=== PATIENT | male | born 1980 | race American Indian/Alaskan Native ===

== ENCOUNTER 2016-07-12 14:47 | Emergency (ER) | payer OTHER, MEDICAID ==
[2016-07-12] MEDS ORDERED: Sodium Chloride 0.9% 10 ML Syringe FLUSH PRN (15:47)
[2016-07-12] MEDS ORDERED: Sodium Chloride 0.9% 1,000 ML IV ONE (16:16)
[2016-07-12] MEDS ORDERED: Iopamidol 612 MG/ML 50 ML SDV IVPUSH ONE (16:16)
[2016-07-12] MEDS ORDERED: Iopamidol 612 MG/ML 75 ML Bottle IVPUSH ONE (16:16)
[2016-07-12 16:22] LABS: CHLORIDE,CL 99 mmol/L (101-111); SODIUM,NA 137 mmol/L (135-145)
[2016-07-12] MEDS ORDERED: cefTRIAXone 2 GM in Sodium Chloride 0.9% 100 ML IV ONE (18:55)
--- NOTE | 2016-07-12 19:03 | EDM.PDOC ---
Scribed by Nayely Narvaez 07/12/16 468 for Willian Hunter MD ED HPI GI/ABDOMINAL - General Chief Complaint: Abdominal Pain Stated Complaint: PAIN LOWER RT SIDE Time Seen by Provider: 07/12/16 15:47 Source of Information: Reports: Patient, RN, RN notes reviewed History Limitations: Reports: No limitations - History of Present Illness INITIAL COMMENTS - FREE TEXT/NARRATIVE: Patient developed right lower quadrant abdominal pain last night around 8:30 p.m. Today it returned and worsened and then improved to mild. Worse with movement and causes nausea. Denies radiating pain, fever, chills, vomiting, diarrhea or constipation. Symptom Onset Date: 07/11/16 Timing/Duration: Reports: Gradual onset Location: RLQ Quality: Reports: ache Severity: moderate Associated Symptoms: Reports: denies other symptoms - Related Data Allergies/ADRs: Allergies Allergy/AdvReac Type Severity Reaction Status Date / Time No Known Allergies Allergy Verified 05/29/16 16:19 Home Meds: Home Meds Aspirin 81 mg PO DAILY 02/26/15 [History] Hydrochlorothiazide [Hydrochlorothiazide] 25 mg PO DAILY 02/26/15 [History] Lisinopril 10 mg PO DAILY 02/26/15 [History] Pantoprazole [Protonix] 40 mg PO DAILY 02/26/15 [History] amLODIPine Besylate [Amlodipine Besylate] 5 mg PO DAILY 02/26/15 [History] Celecoxib [CeleBREX] 100 mg PO ASDIRECTED PRN 07/12/16 [History] Past Medical History HEENT History: Reports: Impaired vision Other HEENT History: WEARS CORRECTIVE LENSES Cardiovascular History: Reports: Hypertension Other Cardiovascular History: HYPERLIPIDEMIA Gastrointestinal History: Reports: GERD Musculoskeletal History: Reports: None Endocrine/Metabolic History: Reports: Diabetes, type II, Obesity/BMI 30+ (morbid ) Dermatologic History: Reports: Other (see below) Other Dermatologic History: currently being treated for abscess to lower right abd. - Infectious Disease History Infectious Disease History: Reports: Chicken pox - Past Surgical History HEENT Surgical History: Reports: None GI Surgical History: Reports: None Other Musculoskeletal Surgeries/Procedures:: HIP SURGERY D/T DISLOCATION Dermatological Surgical History: Reports: None Social & Family History - Family History Family Medical History: Noncontributory HEENT: Reports: Macular degeneration Other HEENT Family History: Dad Cardiac: Reports: Heart failure Other Cardiac Family History: Dad Respiratory: Reports: COPD Psychiatric: Reports: PTSD Other Psychiatric Family History: Dad Endocrine/Metabolic: Reports: Diabetes, type II Other Endocrine/Metabolic Family History: mom Hematologic: Reports: None - Tobacco Use Smoking Status *Q: Never Smoker Years of Tobacco use: 18 Packs/Tins Daily: 0.1 Used Tobacco, but Quit: No Second Hand Smoke Exposure: No - Caffeine Use Caffeine Use: Reports: None - Recreational Drug Use Recreational Drug Use: No ED ROS GENERAL - Review of Systems Review Of Systems: ROS reveals no pertinent complaints other than HPI. ED EXAM, GI/ABD - Physical Exam Exam: See Below Exam Limited By: No limitations General Appearance: obese Eyes: bilateral: pale conjunctiva Ears: normal external exam, normal canal, hearing grossly normal, normal TMs Nose: normal inspection Throat/Mouth: Other (mild pharyngeal erythema.) Head: atraumatic, normocephalic Neck: normal inspection, supple, non-tender, full range of motion Respiratory/Chest: no respiratory distress, lungs clear, normal breath sounds, no accessory muscle use, chest non-tender Cardiovascular: normal peripheral pulses, regular rate, rhythm, no edema, no gallop, no JVD, no murmur, no rub GI/Abdominal: other (morbidly obese abdomen with RLQ pain to palpation. No guarding or rigidity. Normal bowel sounds.) Back Exam: normal inspection, full range of motion, NT Extremities: normal inspection Neurological: alert, oriented, CN II-XII intact, normal cognition, normal gait, normal reflexes, no motor/sensory deficits Psychiatric: normal affect, normal mood Skin Exam: Warm, Dry, Intact, Normal color, No rash Course - Vital Signs Last Recorded V/S: Last Vital Signs Temp 36.4 C 07/12/16 15:33 Pulse 75 07/12/16 15:33 Resp 18 07/12/16 15:33 BP 117/78 07/12/16 15:33 Pulse Ox 96 07/12/16 15:33 - Orders/Labs/Meds Orders: Active Orders 24 hr Category Date Time Status Peripheral IV Care [RC] . DIRECTED Care 07/12/16 15:48 Active Sodium Chloride 0.9% [Saline Flush] Med 07/12/16 15:47 Active 10 ml FLUSH ASDIRECTED PRN cefTRIAXone [Rocephin] 2 gm Med 07/12/16 18:55 Active Sodium Chloride 0.9% [Normal Saline] 100 ml IV ONETIME Peripheral IV Insertion Adult [OM.PC] Stat Oth 07/12/16 15:47 Ordered Medication Orders Ceftriaxone Sodium 2 gm/ (Sodium Chloride) 100 mls @ 200 mls/hr IV ONETIME ONE Stop: 07/12/16 19:24 Sodium Chloride (Saline Flush) 10 ml FLUSH ASDIRECTED PRN PRN Reason: Keep Vein Open Last Admin: 07/12/16 16:37 Dose: 10 ml Labs: Laboratory Tests 07/12/16 07/12/16 07/12/16 Range/Units 15:49 15:49 15:55 WBC 10.9 H (5.0-10.0) 10^3/uL RBC 5.33 (4.6-6.2) 10^6/uL Hgb 15.1 (14.0-18.0) g/dL Hct 45.5 (40.0-54.0) % MCV 85.4 (80-100) fL MCH 28.3 (27.0-34.0) pg MCHC 33.2 (33.0-35.0) g/dL Plt Count 351 (150-450) 10^3/uL Neut % (Auto) 65.8 (42.2-75.2) % Lymph % (Auto) 24.4 (20.5-50.1) % [place] % (Auto) 7.6 (2-8) % Eos % (Auto) 1.6 (1.0-3.0) % Baso % (Auto) 0.6 (0.0-1.0) % Sodium (135-145) mmol/L Potassium (3.6-5.0) mmol/L Chloride (101-111) mmol/L Carbon Dioxide (21.0-31.0) mmol/L Anion Gap BUN (7-18) mg/dL Creatinine (0.6-1.3) mg/dL Est Cr Clr Drug Dosing Estimated GFR (MDRD) BUN/Creatinine Ratio Glucose (74-105) mg/dL Calcium (8.4-10.2) mg/dl Total Bilirubin (0.2-1.0) mg/dL AST (10-42) IU/L ALT (10-60) IU/L Alkaline Phosphatase (42-121) IU/L Total Protein (6.7-8.2) g/dl Albumin (3.2-5.5) g/dl Globulin Albumin/Globulin Ratio Amylase (28-100) U/L Lipase (22-51) U/L Urine Color Yellow (YELLOW) Urine Appearance Clear (CLEAR) Urine pH 6.5 (5.0-9.0) Ur Specific [place] 1.020 (1.005-1.030) Urine Protein Negative (NEGATIVE) Urine Glucose (UA) Negative (NEGATIVE) Urine Ketones Negative (NEGATIVE) Urine Occult Blood Negative (NEGATIVE) Urine Nitrite Negative (NEGATIVE) Urine Bilirubin Negative (NEGATIVE) Urine Urobilinogen 0.2 (0.2-1.0) mg/dL Ur Leukocyte Esterase Negative (NEGATIVE) Urine RBC 0-5 /HPF Urine WBC 0-5 (0-5/HPF) /HPF Ur Epithelial Cells Few /HPF Urine Bacteria Few (0-FEW/HPF) /HPF Urine Mucus Moderate H /LPF Urine Opiates Screen Negative (NEGATIVE) Ur Oxycodone Screen Negative (NEGATIVE) Urine Methadone Screen Negative (NEGATIVE) Ur Barbiturates Screen Negative (NEGATIVE) U Tricyclic Antidepress Negative (NEGATIVE) Ur Phencyclidine Scrn Negative (NEGATIVE) Ur Amphetamine Screen Negative (NEGATIVE) U Methamphetamines Scrn Negative (NEGATIVE) Urine MDMA Screen Negative (NEGATIVE) U Benzodiazepines Scrn Negative (NEGATIVE) Urine Cocaine Screen Negative (NEGATIVE) U Marijuana (THC) Screen Negative (NEGATIVE) 07/12/16 Range/Units 15:55 WBC (5.0-10.0) 10^3/uL RBC (4.6-6.2) 10^6/uL Hgb (14.0-18.0) g/dL Hct (40.0-54.0) % MCV (80-100) fL MCH (27.0-34.0) pg MCHC (33.0-35.0) g/dL Plt Count (150-450) 10^3/uL Neut % (Auto) (42.2-75.2) % Lymph % (Auto) (20.5-50.1) % [place] % (Auto) (2-8) % Eos % (Auto) (1.0-3.0) % Baso % (Auto) (0.0-1.0) % Sodium 137 (135-145) mmol/L Potassium 3.8 (3.6-5.0) mmol/L Chloride 99 L (101-111) mmol/L Carbon Dioxide 26.0 (21.0-31.0) mmol/L Anion Gap 15.8 BUN 10 (7-18) mg/dL Creatinine 0.6 (0.6-1.3) mg/dL Est Cr Clr Drug Dosing TNP Estimated GFR (MDRD) > 60 BUN/Creatinine Ratio 16.66 Glucose 98 (74-105) mg/dL Calcium 9.3 (8.4-10.2) mg/dl Total Bilirubin 0.8 (0.2-1.0) mg/dL AST 21 (10-42) IU/L ALT 22 (10-60) IU/L Alkaline Phosphatase 87 (42-121) IU/L Total Protein 8.1 (6.7-8.2) g/dl Albumin 4.3 (3.2-5.5) g/dl Globulin 3.8 Albumin/Globulin Ratio 1.13 Amylase 37 (28-100) U/L Lipase 22 (22-51) U/L Urine Color (YELLOW) Urine Appearance (CLEAR) Urine pH (5.0-9.0) Ur Specific [place] (1.005-1.030) Urine Protein (NEGATIVE) Urine Glucose (UA) (NEGATIVE) Urine Ketones (NEGATIVE) Urine Occult Blood (NEGATIVE) Urine Nitrite (NEGATIVE) Urine Bilirubin (NEGATIVE) Urine Urobilinogen (0.2-1.0) mg/dL Ur Leukocyte Esterase (NEGATIVE) Urine RBC /HPF Urine WBC (0-5/HPF) /HPF Ur Epithelial Cells /HPF Urine Bacteria (0-FEW/HPF) /HPF Urine Mucus /LPF Urine Opiates Screen (NEGATIVE) Ur Oxycodone Screen (NEGATIVE) Urine Methadone Screen (NEGATIVE) Ur Barbiturates Screen (NEGATIVE) U Tricyclic Antidepress (NEGATIVE) Ur Phencyclidine Scrn (NEGATIVE) Ur Amphetamine Screen (NEGATIVE) U Methamphetamines Scrn (NEGATIVE) Urine MDMA Screen (NEGATIVE) U Benzodiazepines Scrn (NEGATIVE) Urine Cocaine Screen (NEGATIVE) U Marijuana (THC) Screen (NEGATIVE) Rapid strep: Positive Meds: Medications Generic Name Dose Route Start Last Admin Trade Name Freq PRN Reason Stop Dose Admin Ceftriaxone Sodium 2 gm/ 100 mls @ 200 mls/hr 07/12/16 18:55 Sodium Chloride IV 07/12/16 19:24 ONETIME ONE Sodium Chloride 10 ml 07/12/16 15:47 07/12/16 16:37 Saline Flush FLUSH 10 ml ASDIRECTED PRN Administration Keep Vein Open Discontinued Medications Generic Name Dose Route Start Last Admin Trade Name Freq PRN Reason Stop Dose Admin Sodium Chloride 1,000 mls @ 999 mls/hr 07/12/16 16:16 07/12/16 17:57 Normal Saline IV 07/12/16 17:16 999 mls/hr .BOLUS ONE Administration Iopamidol 75 ml 07/12/16 16:16 07/12/16 16:55 Isovue-300 (61%) IVPUSH 07/12/16 16:17 75 ml ONETIME ONE Administration Iopamidol 50 ml 07/12/16 16:16 07/12/16 16:55 Isovue-300 (61%) IVPUSH 07/12/16 16:17 50 ml ONETIME ONE Administration - Radiology Interpretation Free Text/Narrative:: Chest x-ray: Normal chest per rad report. CT abdomen and pelvis: Normal appendix per rad report. Departure - Departure Time of Disposition: 18:59 Disposition: Home, Self-Care 01 Condition: fair Clinical Impression: Strep pharyngitis, Abdominal pain, RLQ Instructions: Strep Throat, [id number], Abdominal Pain, Adult Forms: ED Department Discharge Additional Instructions: Amoxicillin 500mg. Follow up in clinic if not improving in 2 days. - My Orders Last 24 Hours: My Active Orders 07/12/16 15:47 Sodium Chloride 0.9% [Saline Flush] 10 ml FLUSH ASDIRECTED PRN Peripheral IV Insertion Adult [OM.PC] Stat 07/12/16 15:48 Peripheral IV Care [RC] . DIRECTED 07/12/16 18:55 cefTRIAXone [Rocephin] 2 gm Sodium Chloride 0.9% [Normal Saline] 100 ml IV ONETIME - Assessment/Plan Last 24 Hours: My Active Orders 07/12/16 15:47 Sodium Chloride 0.9% [Saline Flush] 10 ml FLUSH ASDIRECTED PRN Peripheral IV Insertion Adult [OM.PC] Stat 07/12/16 15:48 Peripheral IV Care [RC] . DIRECTED 07/12/16 18:55 cefTRIAXone [Rocephin] 2 gm Sodium Chloride 0.9% [Normal Saline] 100 ml IV ONETIME I have read and agree with the documentation that has been completed regarding this visit. By signing this record, I attest that the documentation was completed in my physical presence and is an accurate record of the encounter.
[2016-07-12 19:13] VITALS: BP 127/77
== END 2016-07-12 19:50 | disposition home or self-care (01) ==
LOC: DL.ED 14:47
DX: R10.31 Right lower quadrant pain (principal); J02.0 Streptococcal pharyngitis; Z79.82 Long term (current) use of aspirin; Z79.899 Other long term (current) drug therapy; I10 Essential (primary) hypertension; E78.5 Hyperlipidemia, unspecified; K21.9 Gastro-esophageal reflux disease without esophagitis; E11.9 Type 2 diabetes mellitus without complications; E66.9 Obesity, unspecified; Z68.30 Body mass index [BMI] 30.0-30.9, adult
CPT/HCPCS: 36415; 71020; 74177; 80053; 80305; 81001; 82150; 83690; 85025; 87430; 96361; 96365; 99284; J0696; J7030; J7050; Q9967

== ENCOUNTER 2016-07-29 15:52 | Emergency (ER) | payer OTHER, MEDICAID ==
[2016-07-29 16:05] VITALS: BP 134/90
--- NOTE | 2016-07-29 16:41 | EDM.PDOC ---
ED HPI GENERAL MEDICAL PROBLEM - General Chief Complaint: General Stated Complaint: [id number] DIZZY LIGHT HEADED Time Seen by Provider: 07/29/16 16:39 Source of Information: Reports: Patient History Limitations: Reports: No limitations - History of Present Illness INITIAL COMMENTS - FREE TEXT/NARRATIVE: Pt states that he woke this afternooon and became lightheaded and had some dizziness with nausea. Denies vomiting or LOC. no other complaints. Onset Date: 07/29/16 Duration: Recurring Associated Symptoms: Reports: nausea/vomiting - Related Data Allergies Allergy/AdvReac Type Severity Reaction Status Date / Time No Known Allergies Allergy Verified 07/29/16 16:03 Home Meds: Home Meds Aspirin 81 mg PO DAILY 02/26/15 [History] Hydrochlorothiazide [Hydrochlorothiazide] 25 mg PO DAILY 02/26/15 [History] Lisinopril 10 mg PO DAILY 02/26/15 [History] Pantoprazole [Protonix] 40 mg PO DAILY 02/26/15 [History] amLODIPine Besylate [Amlodipine Besylate] 5 mg PO DAILY 02/26/15 [History] Celecoxib [CeleBREX] 100 mg PO ASDIRECTED PRN 07/12/16 [History] Past Medical History HEENT History: Reports: Impaired vision Other HEENT History: WEARS CORRECTIVE LENSES Cardiovascular History: Reports: Hypertension Other Cardiovascular History: HYPERLIPIDEMIA Gastrointestinal History: Reports: GERD Musculoskeletal History: Reports: None Endocrine/Metabolic History: Reports: Diabetes, type II, Obesity/BMI 30+ Other Endocrine/Metabolic History: diet control. Dermatologic History: Reports: Other (see below) Other Dermatologic History: currently being treated for abscess to lower right abd. - Infectious Disease History Infectious Disease History: Reports: Chicken pox - Past Surgical History HEENT Surgical History: Reports: None GI Surgical History: Reports: None Other Musculoskeletal Surgeries/Procedures:: HIP SURGERY D/T DISLOCATION Dermatological Surgical History: Reports: None Social & Family History - Family History Family Medical History: Noncontributory HEENT: Reports: Macular degeneration Other HEENT Family History: Dad Cardiac: Reports: Heart failure Other Cardiac Family History: Dad Respiratory: Reports: COPD Psychiatric: Reports: PTSD Other Psychiatric Family History: Dad Endocrine/Metabolic: Reports: Diabetes, type II Other Endocrine/Metabolic Family History: mom Hematologic: Reports: None - Tobacco Use Smoking Status *Q: Unknown Ever Smoked Years of Tobacco use: 18 Packs/Tins Daily: 0.1 Used Tobacco, but Quit: No Second Hand Smoke Exposure: No - Caffeine Use Caffeine Use: Reports: Soda - Recreational Drug Use Recreational Drug Use: No ED ROS GENERAL - Review of Systems Review Of Systems: See Below Neurological: Reports: Dizziness ED EXAM, GENERAL - Physical Exam Exam: See Below Exam Limited By: No limitations General Appearance: alert, WD/WN, no apparent distress Eye Exam: bilateral eye: normal inspection, PERRL Ears: normal external exam, normal canal, hearing grossly normal Ear Exam: left ear: TM normal, right ear: TM dull (mild effusion) Nose: normal inspection, normal mucosa, no blood Throat/Mouth: Normal inspection, Normal lips, Normal teeth, Normal gums, Normal oropharynx, Normal voice, No airway compromise Head: atraumatic, normocephalic Respiratory/Chest: no respiratory distress, lungs clear, normal breath sounds, no accessory muscle use, chest non-tender Cardiovascular: normal peripheral pulses, regular rate, rhythm, no edema, no gallop, no JVD, no murmur, no rub Neurological: alert, oriented, CN II-XII intact, normal cognition, normal gait, normal reflexes, no motor/sensory deficits Course - Vital Signs Last Recorded V/S: Last Vital Signs Temp 97.8 F 07/29/16 16:04 Pulse 70 07/29/16 16:04 Resp 16 07/29/16 16:04 BP 134/90 07/29/16 16:04 Pulse Ox 96 07/29/16 16:04 Orthostatic Blood Pressure [ 124/81 Standing] Orthostatic Blood Pressure [ 123/76 Sitting] Orthostatic Blood Pressure [ 125/70 Supine] - Orders/Labs/Meds Orders: Active Orders 24 hr Category Date Time Status EKG Documentation Completion [RC] STAT Care 07/29/16 16:41 Active Orthostatic Vital Signs [RC] ASDIRECTED Care 07/29/16 16:43 Active Head wo Cont [CT] Stat Exams 07/29/16 16:41 Taken Meclizine [Antivert] Med 07/29/16 18:48 Once 12.5 mg PO ONETIME ONE Labs: Laboratory Tests 07/29/16 07/29/16 07/29/16 Range/Units 16:24 16:50 16:50 WBC 7.0 (5.0-10.0) 10^3/uL RBC 5.10 (4.6-6.2) 10^6/uL Hgb 14.3 (14.0-18.0) g/dL Hct 43.5 (40.0-54.0) % MCV 85.3 (80-100) fL MCH 28.0 (27.0-34.0) pg MCHC 32.9 L (33.0-35.0) g/dL Plt Count 356 (150-450) 10^3/uL Neut % (Auto) 57.1 (42.2-75.2) % Lymph % (Auto) 32.1 (20.5-50.1) % [place] % (Auto) 8.6 H (2-8) % Eos % (Auto) 1.2 (1.0-3.0) % Baso % (Auto) 1.0 (0.0-1.0) % Sodium 137 (135-145) mmol/L Potassium 4.1 (3.6-5.0) mmol/L Chloride 100 L (101-111) mmol/L Carbon Dioxide 27.0 (21.0-31.0) mmol/L Anion Gap 14.1 BUN 8 (7-18) mg/dL Creatinine 0.8 (0.6-1.3) mg/dL Est Cr Clr Drug Dosing 151.10 mL/min Estimated GFR (MDRD) > 60 Glucose 106 H (74-105) mg/dL POC Glucose 114 H (70-105) mg/dl Calcium 9.3 (8.4-10.2) mg/dl Creatine Kinase (26-174) IU/L Creatine Kinase Index (0-2.4) % CK-MB (CK-2) (0.4-4.7) ng/mL Troponin I < 0.02 (0.00-0.02) ng/ml Urine Color (YELLOW) Urine Appearance (CLEAR) Urine pH (5.0-9.0) Ur Specific [place] (1.005-1.030) Urine Protein (NEGATIVE) Urine Glucose (UA) (NEGATIVE) Urine Ketones (NEGATIVE) Urine Occult Blood (NEGATIVE) Urine Nitrite (NEGATIVE) Urine Bilirubin (NEGATIVE) Urine Urobilinogen (0.2-1.0) mg/dL Ur Leukocyte Esterase (NEGATIVE) Urine RBC /HPF Urine WBC (0-5/HPF) /HPF Ur Epithelial Cells /HPF Urine Bacteria (0-FEW/HPF) /HPF Urine Opiates Screen (NEGATIVE) Ur Oxycodone Screen (NEGATIVE) Urine Methadone Screen (NEGATIVE) Ur Barbiturates Screen (NEGATIVE) U Tricyclic Antidepress (NEGATIVE) Ur Phencyclidine Scrn (NEGATIVE) Ur Amphetamine Screen (NEGATIVE) U Methamphetamines Scrn (NEGATIVE) Urine MDMA Screen (NEGATIVE) U Benzodiazepines Scrn (NEGATIVE) Urine Cocaine Screen (NEGATIVE) U Marijuana (THC) Screen (NEGATIVE) 07/29/16 07/29/16 07/29/16 Range/Units 16:50 17:15 17:15 WBC (5.0-10.0) 10^3/uL RBC (4.6-6.2) 10^6/uL Hgb (14.0-18.0) g/dL Hct (40.0-54.0) % MCV (80-100) fL MCH (27.0-34.0) pg MCHC (33.0-35.0) g/dL Plt Count (150-450) 10^3/uL Neut % (Auto) (42.2-75.2) % Lymph % (Auto) (20.5-50.1) % [place] % (Auto) (2-8) % Eos % (Auto) (1.0-3.0) % Baso % (Auto) (0.0-1.0) % Sodium (135-145) mmol/L Potassium (3.6-5.0) mmol/L Chloride (101-111) mmol/L Carbon Dioxide (21.0-31.0) mmol/L Anion Gap BUN (7-18) mg/dL Creatinine (0.6-1.3) mg/dL Est Cr Clr Drug Dosing mL/min Estimated GFR (MDRD) Glucose (74-105) mg/dL POC Glucose (70-105) mg/dl Calcium (8.4-10.2) mg/dl Creatine Kinase 69 (26-174) IU/L Creatine Kinase Index 0.9 (0-2.4) % CK-MB (CK-2) 0.60 (0.4-4.7) ng/mL Troponin I (0.00-0.02) ng/ml Urine Color Yellow (YELLOW) Urine Appearance Clear (CLEAR) Urine pH 7.0 (5.0-9.0) Ur Specific [place] 1.015 (1.005-1.030) Urine Protein Negative (NEGATIVE) Urine Glucose (UA) Negative (NEGATIVE) Urine Ketones Negative (NEGATIVE) Urine Occult Blood Negative (NEGATIVE) Urine Nitrite Negative (NEGATIVE) Urine Bilirubin Negative (NEGATIVE) Urine Urobilinogen 0.2 (0.2-1.0) mg/dL Ur Leukocyte Esterase Negative (NEGATIVE) Urine RBC 0-5 /HPF Urine WBC 0-5 (0-5/HPF) /HPF Ur Epithelial Cells Few /HPF Urine Bacteria Few (0-FEW/HPF) /HPF Urine Opiates Screen Negative (NEGATIVE) Ur Oxycodone Screen Negative (NEGATIVE) Urine Methadone Screen Negative (NEGATIVE) Ur Barbiturates Screen Negative (NEGATIVE) U Tricyclic Antidepress Negative (NEGATIVE) Ur Phencyclidine Scrn Negative (NEGATIVE) Ur Amphetamine Screen Negative (NEGATIVE) U Methamphetamines Scrn Negative (NEGATIVE) Urine MDMA Screen Negative (NEGATIVE) U Benzodiazepines Scrn Negative (NEGATIVE) Urine Cocaine Screen Negative (NEGATIVE) U Marijuana (THC) Screen Negative (NEGATIVE) Departure - Departure Time of Disposition: 18:48 Disposition: Home, Self-Care 01 Condition: good Clinical Impression: Vertigo Instructions: Vertigo Forms: ED Department Discharge Additional Instructions: take the meclizine twice a day as needed for the dizziness. Make sure to get claritin or mucinex for allergy relief and to decrease the congestion. follow up in clinic in 2-4 days if not better. Return for any worsening symptoms. - My Orders Last 24 Hours: My Active Orders 07/29/16 16:41 EKG Documentation Completion [RC] STAT Head wo Cont [CT] Stat 07/29/16 16:43 Orthostatic Vital Signs [RC] ASDIRECTED 07/29/16 18:48 Meclizine [Antivert] 12.5 mg PO ONETIME ONE - Assessment/Plan Last 24 Hours: My Active Orders 07/29/16 16:41 EKG Documentation Completion [RC] STAT Head wo Cont [CT] Stat 07/29/16 16:43 Orthostatic Vital Signs [RC] ASDIRECTED 07/29/16 18:48 Meclizine [Antivert] 12.5 mg PO ONETIME ONE
[2016-07-29 17:15] LABS: CHLORIDE,CL 100 mmol/L (101-111); SODIUM,NA 137 mmol/L (135-145)
[2016-07-29] MEDS ORDERED: Meclizine 12.5 MG Tab PO ONE (18:48)
--- NOTE | 2016-09-30 10:52 | EKG ---
07/29/2016 - CESIA RASMUSSEN - TIME: 1653 p.m. EKG shows normal sinus rhythm. First-degree AV block. [facility] /[id number]
== END 2016-07-29 18:55 | disposition home or self-care (01) ==
LOC: DL.ED 15:52
DX: R42 Dizziness and giddiness (principal); R11.0 Nausea; I10 Essential (primary) hypertension; E78.5 Hyperlipidemia, unspecified; K21.9 Gastro-esophageal reflux disease without esophagitis; E11.9 Type 2 diabetes mellitus without complications; E66.9 Obesity, unspecified; Z79.82 Long term (current) use of aspirin; Z79.899 Other long term (current) drug therapy
CPT/HCPCS: 36415; 70450; 80048; 80305; 81001; 82550; 82553; 82962; 84484; 85025; 93005; 99284; A9270

== ENCOUNTER 2016-10-27 22:08 | Emergency (ER) | payer OTHER, MEDICAID ==
[2016-10-27 22:19] VITALS: BP 145/70
--- NOTE | 2016-10-27 22:36 | EDM.PDOC ---
ED HPI GENERAL MEDICAL PROBLEM - General Chief Complaint: ENT Problem Stated Complaint: SORE THROAT Time Seen by Provider: 10/27/16 22:25 Source of Information: Reports: Patient History Limitations: Reports: Language Barrier - History of Present Illness INITIAL COMMENTS - FREE TEXT/NARRATIVE: Congestion for 2 days, sore throat starting today. No fever. Hx strep. Has not tried any OTC cold products. Onset: Today Throat Pain Score (Numeric/FACES): 3 - Related Data Allergies Allergy/AdvReac Type Severity Reaction Status Date / Time No Known Allergies Allergy Verified 10/27/16 22:19 Home Meds: Home Meds Aspirin 81 mg PO DAILY 02/26/15 [History] Hydrochlorothiazide [Hydrochlorothiazide] 25 mg PO DAILY 02/26/15 [History] Lisinopril 10 mg PO DAILY 02/26/15 [History] Pantoprazole [Protonix] 40 mg PO DAILY 02/26/15 [History] amLODIPine Besylate [Amlodipine Besylate] 5 mg PO DAILY 02/26/15 [History] Celecoxib [CeleBREX] 100 mg PO ASDIRECTED PRN 07/12/16 [History] Past Medical History HEENT History: Reports: Impaired Vision Other HEENT History: WEARS CORRECTIVE LENSES Cardiovascular History: Reports: Hypertension Other Cardiovascular History: HYPERLIPIDEMIA Gastrointestinal History: Reports: GERD Musculoskeletal History: Reports: None Endocrine/Metabolic History: Reports: Diabetes, Type II, Obesity/BMI 30+ Other Endocrine/Metabolic History: diet control. Dermatologic History: Reports: Other (See Below) Other Dermatologic History: currently being treated for abscess to lower right abd. - Infectious Disease History Infectious Disease History: Reports: Chicken Pox - Past Surgical History GI Surgical History: Reports: None Musculoskeletal Surgical History: Reports: Other (See Below) Social & Family History - Family History Family Medical History: Noncontributory HEENT: Reports: Macular Degeneration Other HEENT Family History: Dad Cardiac: Reports: Heart Failure Other Cardiac Family History: Dad Respiratory: Reports: COPD Psychiatric: Reports: PTSD Other Psychiatric Family History: Dad Endocrine/Metabolic: Reports: Diabetes, type II Other Endocrine/Metabolic Family History: mom Hematologic: Reports: None - Tobacco Use Smoking Status *Q: Former Smoker Years of Tobacco use: 18 Packs/Tins Daily: 0.1 Used Tobacco, but Quit: No Second Hand Smoke Exposure: No - Caffeine Use Caffeine Use: Reports: Soda - Recreational Drug Use Recreational Drug Use: No ED ROS ENT - Review of Systems Review Of Systems: See Below Constitutional: Denies: Fever, Chills HEENT: Reports: Sinus Problem (conestion post nasal drainage) Respiratory: Reports: No Symptoms Cardiovascular: Reports: No Symptoms GI/Abdominal: Reports: No Symptoms Musculoskeletal: Reports: No Symptoms Skin: Reports: No Symptoms Neurological: Reports: No Symptoms ED EXAM, ENT - Physical Exam Exam: See Below Exam Limited By: No Limitations General Appearance: Alert, Mild Distress Eye Exam: Bilateral Eye: EOMI Ears: Normal External Exam, Normal TMs. No: TM Erythema, TM Fluid Nose: Normal Inspection Mouth/Throat: Pharyngeal Erythema Head: Atraumatic, Normocephalic Neck: Normal Inspection. No: Lymphadenopathy (L), Lymphadenopathy (R) Respiratory/Chest: No Respiratory Distress, Lungs Clear, Normal Breath Sounds Cardiovascular: Normal Peripheral Pulses, Regular Rate, Rhythm Extremities: Normal Range of Motion Neurological: Alert, Oriented, Normal Cognition Psychiatric: Normal Affect Skin: Warm, Dry, Intact Course - Vital Signs Last Recorded V/S: Last Vital Signs Temp 97.8 F 10/27/16 22:11 Pulse 87 10/27/16 22:11 Resp 18 10/27/16 22:11 BP 145/70 H 10/27/16 22:11 Pulse Ox 98 10/27/16 22:11 - Orders/Labs/Meds Orders: Active Orders 24 hr Category Date Time Status CULTURE STREP A CONFIRMATION [RM] Stat Lab 10/27/16 22:21 Results STREP SCRN A RAPID W CULT CONF [RM] Stat Lab 10/27/16 22:21 Received Departure - Departure Time of Disposition: 22:48 Disposition: Home, Self-Care 01 Condition: Good Clinical Impression: URI (upper respiratory infection) Qualifiers: URI type: unspecified viral URI Qualified Code(s): J06.9 - Acute upper respiratory infection, unspecified - Discharge Information Instructions: Upper Respiratory Infection, Adult, [id number] Forms: ED Department Discharge Additional Instructions: alternate tylenol and ibuprofen for discomfort OTC cold medications increase fluids rest follow up if symptoms worsen, fever chills, productive cough - My Orders Last 24 Hours: My Active Orders 10/27/16 22:21 CULTURE STREP A CONFIRMATION [RM] Stat STREP SCRN A RAPID W CULT CONF [RM] Stat - Assessment/Plan Last 24 Hours: My Active Orders 10/27/16 22:21 CULTURE STREP A CONFIRMATION [RM] Stat STREP SCRN A RAPID W CULT CONF [RM] Stat
== END 2016-10-27 22:52 | disposition home or self-care (01) ==
LOC: DL.ED 22:08
DX: J06.9 Acute upper respiratory infection, unspecified (principal); H54.7 Unspecified visual loss; I10 Essential (primary) hypertension; E78.5 Hyperlipidemia, unspecified; K21.9 Gastro-esophageal reflux disease without esophagitis; E66.9 Obesity, unspecified; E11.9 Type 2 diabetes mellitus without complications; Z87.891 Personal history of nicotine dependence; Z79.82 Long term (current) use of aspirin; Z79.899 Other long term (current) drug therapy
CPT/HCPCS: 87081; 87430; 99283

== ENCOUNTER 2016-12-16 14:38 | Emergency (ER) | payer OTHER, MEDICAID ==
[2016-12-16] MEDS ORDERED: Aspirin 81 MG Tab.Chew PO ONE (14:50)
[2016-12-16] MEDS ORDERED: Aspirin 81 MG Tab.Chew ONE (14:54)
--- NOTE | 2016-12-16 14:54 | EDM.PDOC ---
ED HPI GENERAL MEDICAL PROBLEM - General Stated Complaint: [id number] CHEST PAIN Time Seen by Provider: 12/16/16 14:45 Source of Information: Reports: Patient History Limitations: Reports: No Limitations - History of Present Illness INITIAL COMMENTS - FREE TEXT/NARRATIVE: This 36 yo male patient reports to the ED with left sided chest pain. The patient reports his pain has been intermittent throughout today. The patient reports he has had similar symptoms in the past. The patient reports his symptoms increase with he moves his left arm. The patient reports he was seen by a piercing machine operator, but was told that everything was normal. The patient has not taken anything today to change his symptoms. Onset: Today Duration: Hour(s):, Intermittent Location: Reports: Chest (left sided chest pain) Quality: Reports: Ache, Sharp Severity: Severe Improves with: Reports: None Worsens with: Reports: Movement (of his left arm) Context: Reports: Other Associated Symptoms: Reports: Chest Pain - Related Data Allergies Allergy/AdvReac Type Severity Reaction Status Date / Time No Known Allergies Allergy Verified 10/27/16 22:19 Home Meds: Home Meds Aspirin 81 mg PO DAILY 02/26/15 [History] Hydrochlorothiazide [Hydrochlorothiazide] 25 mg PO DAILY 02/26/15 [History] Lisinopril 10 mg PO DAILY 02/26/15 [History] Pantoprazole [Protonix] 40 mg PO DAILY 02/26/15 [History] amLODIPine Besylate [Amlodipine Besylate] 5 mg PO DAILY 02/26/15 [History] Celecoxib [CeleBREX] 100 mg PO ASDIRECTED PRN 07/12/16 [History] Past Medical History HEENT History: Reports: Impaired Vision Other HEENT History: WEARS CORRECTIVE LENSES Cardiovascular History: Reports: Hypertension Other Cardiovascular History: HYPERLIPIDEMIA Gastrointestinal History: Reports: GERD Musculoskeletal History: Reports: None Endocrine/Metabolic History: Reports: Diabetes, Type II, Obesity/BMI 30+ Other Endocrine/Metabolic History: diet control. Dermatologic History: Reports: Other (See Below) Other Dermatologic History: currently being treated for abscess to lower right abd. - Infectious Disease History Infectious Disease History: Reports: Chicken Pox - Past Surgical History GI Surgical History: Reports: None Musculoskeletal Surgical History: Reports: Other (See Below) Social & Family History - Family History Family Medical History: Noncontributory HEENT: Reports: Macular Degeneration Other HEENT Family History: Dad Cardiac: Reports: Heart Failure Other Cardiac Family History: Dad Respiratory: Reports: COPD Psychiatric: Reports: PTSD Other Psychiatric Family History: Dad Endocrine/Metabolic: Reports: Diabetes, type II Other Endocrine/Metabolic Family History: mom Hematologic: Reports: None - Tobacco Use Smoking Status *Q: Former Smoker Years of Tobacco use: 18 Packs/Tins Daily: 0.1 Used Tobacco, but Quit: No Second Hand Smoke Exposure: No - Caffeine Use Caffeine Use: Reports: Soda - Recreational Drug Use Recreational Drug Use: No ED ROS GENERAL - Review of Systems Review Of Systems: ROS reveals no pertinent complaints other than HPI. ED EXAM, GENERAL - Physical Exam Exam: See Below Exam Limited By: No Limitations General Appearance: Alert, WD/WN, Moderate Distress, Obese Eye Exam: Bilateral Eye: EOMI, Normal Inspection, PERRL Ears: Normal External Exam, Normal Canal, Hearing Grossly Normal, Normal TMs Nose: Normal Inspection, Normal Mucosa, No Blood Throat/Mouth: Normal Inspection, Normal Lips, Normal Teeth, Normal Gums, Normal Oropharynx, Normal Voice, No Airway Compromise Head: Atraumatic, Normocephalic Neck: Normal Inspection, Supple, Non-Tender, Full Range of Motion Respiratory/Chest: No Respiratory Distress, Lungs Clear, Normal Breath Sounds, No Accessory Muscle Use, Chest Non-Tender Cardiovascular: Normal Peripheral Pulses, Regular Rate, Rhythm, No Edema, No Gallop, No JVD, No Murmur, No Rub GI/Abdominal: Normal Bowel Sounds, Soft, Non-Tender, No Organomegaly, No Distention, No Abnormal Bruit, No Mass (Male) Exam: Deferred Rectal (Males) Exam: Deferred Back Exam: Normal Inspection, Full Range of Motion, NT Extremities: Normal Inspection, Normal Range of Motion, Non-Tender, Normal Capillary Refill, No Pedal Edema Neurological: Alert, Oriented, CN II-XII Intact, Normal Cognition, Normal Gait, Normal Reflexes, No Motor/Sensory Deficits Psychiatric: Normal Affect, Normal Mood Skin Exam: Warm, Dry, Intact, Normal Color, No Rash Lymphatic: No Adenopathy Course - Orders/Labs/Meds Orders: Active Orders 24 hr Category Date Time Status EKG Documentation Completion [RC] URGENT Care 12/16/16 14:44 Active Labs: Laboratory Tests 08/16/17 08/16/17 Range/Units 14:54 14:54 WBC 8.8 (5.0-10.0) 10^3/uL RBC 5.11 (4.6-6.2) 10^6/uL Hgb 14.4 (14.0-18.0) g/dL Hct 43.9 (40.0-54.0) % MCV 85.9 (80-100) fL MCH 28.2 (27.0-34.0) pg MCHC 32.8 L (33.0-35.0) g/dL Plt Count 343 (150-450) 10^3/uL Neut % (Auto) 49.5 (42.2-75.2) % Lymph % (Auto) 38.2 (20.5-50.1) % [place] % (Auto) 9.2 H (2-8) % Eos % (Auto) 2.2 (1.0-3.0) % Baso % (Auto) 0.9 (0.0-1.0) % Sodium 139 (135-145) mmol/L Potassium 4.0 (3.6-5.0) mmol/L Chloride 103 (101-111) mmol/L Carbon Dioxide 27.0 (21.0-31.0) mmol/L Anion Gap 13.0 BUN 9 (7-18) mg/dL Creatinine 0.6 (0.6-1.3) mg/dL Est Cr Clr Drug Dosing TNP Estimated GFR (MDRD) > 60 BUN/Creatinine Ratio 15.00 Glucose 99 (74-105) mg/dL Calcium 9.1 (8.4-10.2) mg/dl Total Bilirubin 0.9 (0.2-1.0) mg/dL AST 30 (10-42) IU/L ALT 32 (10-60) IU/L Alkaline Phosphatase 87 (42-121) IU/L Troponin I < 0.02 (0.00-0.02) ng/ml Total Protein 7.3 (6.7-8.2) g/dl Albumin 4.0 (3.2-5.5) g/dl Globulin 3.3 Albumin/Globulin Ratio 1.21 Meds: Medications Discontinued Medications Generic Name Dose Route Start Last Admin Trade Name Freq PRN Reason Stop Dose Admin Aspirin 324 mg 12/16/16 14:50 12/16/16 14:58 Aspirin PO 12/16/16 14:51 324 mg ONETIME ONE Administration Aspirin Confirm 12/16/16 14:54 Aspirin Administered 12/16/16 14:55 Dose 243 mg .ROUTE .STK-MED ONE Departure - Departure Time of Disposition: 15:46 Disposition: Home, Self-Care 01 Condition: Fair Clinical Impression: Non-cardiac chest pain Instructions: Nonspecific Chest Pain, [id number] Forms: ED Department Discharge Care Plan Goals: The patient was advised of the examination, lab, and x-ray results during the visit. The patient was encouraged to continue to monitor his symptoms over the next 24 hours. The patient should visit her primary care facility for continued evaluation and further management. If the patient has any additional symptoms or concerns, the patient should follow-up with his primary care facility or return to the emergency department. - My Orders Last 24 Hours: My Active Orders 12/16/16 14:44 EKG Documentation Completion [RC] URGENT - Assessment/Plan Last 24 Hours: My Active Orders 12/16/16 14:44 EKG Documentation Completion [RC] URGENT
[2016-12-16 15:19] LABS: CHLORIDE,CL 103 mmol/L (101-111); SODIUM,NA 139 mmol/L (135-145)
--- NOTE | 2016-12-18 10:48 | EKG ---
12/16/2016- CESIA RASMUSSEN - EKG done on a 36-year-old male showing sinus rhythm with heart rate of 66 beats per minute. RVH. Normal intervals. No acute ST wave changes. [facility] /[id number] MTDD
== END 2016-12-16 16:24 | disposition home or self-care (01) ==
LOC: DL.ED 14:38
DX: R07.89 Other chest pain (principal); H54.7 Unspecified visual loss; I10 Essential (primary) hypertension; E78.5 Hyperlipidemia, unspecified; K21.9 Gastro-esophageal reflux disease without esophagitis; E11.9 Type 2 diabetes mellitus without complications; E66.9 Obesity, unspecified; Z87.891 Personal history of nicotine dependence; Z79.899 Other long term (current) drug therapy
CPT/HCPCS: 36415; 71010; 80053; 84484; 85025; 93005; 99284; A9270

== ENCOUNTER 2017-07-14 14:21 | Emergency (ER) | payer OTHER, MEDICAID ==
--- NOTE | 2017-07-14 14:56 | EDM.PDOC ---
ED HPI GENERAL MEDICAL PROBLEM - General Chief Complaint: Chest Pain Stated Complaint: [id number] CHEST PAIN Time Seen by Provider: 07/14/17 14:35 Source of Information: Reports: Patient, RN, RN Notes Reviewed History Limitations: Reports: No Limitations - History of Present Illness INITIAL COMMENTS - FREE TEXT/NARRATIVE: Patient presents to the ED with complaints of chest pain. Reports that his pain started around 10 this am when he was sitting on the edge of the bed. Reports pain is to the left of his chest. Describes the pain as "twitiching in my chest. " Pain comes and goes lasting a couple seconds when it occurs. Denies shortness of breath, nausea, vomiting, abd pain, blood in his stools, diaphoresis, or recent illness. Patient reports pain is worse with movement. Improves with rest. Has not taken anything for the pain. Onset: Today Onset Time: 10:00 Location: Reports: Chest Quality: Reports: Pressure Severity: Moderate Improves with: Reports: Rest Worsens with: Reports: Movement Associated Symptoms: Reports: Chest Pain - Related Data Allergies Allergy/AdvReac Type Severity Reaction Status Date / Time No Known Allergies Allergy Verified 10/27/16 22:19 Home Meds: Home Meds Aspirin 81 mg PO DAILY 02/26/15 [History] Hydrochlorothiazide [Hydrochlorothiazide] 25 mg PO DAILY 02/26/15 [History] Lisinopril 10 mg PO DAILY 02/26/15 [History] Pantoprazole [Protonix] 40 mg PO DAILY 02/26/15 [History] amLODIPine Besylate [Amlodipine Besylate] 5 mg PO DAILY 02/26/15 [History] Celecoxib [CeleBREX] 100 mg PO ASDIRECTED PRN 07/12/16 [History] Past Medical History HEENT History: Reports: Impaired Vision Other HEENT History: WEARS CORRECTIVE LENSES Cardiovascular History: Reports: Hypertension Other Cardiovascular History: HYPERLIPIDEMIA Gastrointestinal History: Reports: GERD Musculoskeletal History: Reports: None Endocrine/Metabolic History: Reports: Diabetes, Type II, Obesity/BMI 30+ Other Endocrine/Metabolic History: diet control. Dermatologic History: Reports: Other (See Below) Other Dermatologic History: currently being treated for abscess to lower right abd. - Infectious Disease History Infectious Disease History: Reports: Chicken Pox - Past Surgical History GI Surgical History: Reports: None Musculoskeletal Surgical History: Reports: Other (See Below) Social & Family History - Family History Family Medical History: Noncontributory HEENT: Reports: Macular Degeneration Other HEENT Family History: Dad Cardiac: Reports: Heart Failure Other Cardiac Family History: Dad Respiratory: Reports: COPD Psychiatric: Reports: PTSD Other Psychiatric Family History: Dad Endocrine/Metabolic: Reports: Diabetes, type II Other Endocrine/Metabolic Family History: mom Hematologic: Reports: None - Tobacco Use Smoking Status *Q: Former Smoker Years of Tobacco use: 18 Packs/Tins Daily: 0.1 Used Tobacco, but Quit: No Second Hand Smoke Exposure: No - Caffeine Use Caffeine Use: Reports: Soda - Recreational Drug Use Recreational Drug Use: No ED ROS GENERAL - Review of Systems Review Of Systems: ROS reveals no pertinent complaints other than HPI. ED EXAM, GENERAL - Physical Exam Exam: See Below Exam Limited By: No Limitations General Appearance: Alert, WD/WN, No Apparent Distress Eye Exam: Bilateral Eye: PERRL Ears: Normal External Exam, Normal Canal, Hearing Grossly Normal, Normal TMs Ear Exam: Bilateral Ear: Auricle Normal, Canal Normal, TM normal Nose: Normal Inspection, Normal Mucosa, No Blood Throat/Mouth: Normal Inspection, Normal Lips, Normal Teeth, Normal Gums, Normal Oropharynx, Normal Voice, No Airway Compromise Head: Atraumatic, Normocephalic Neck: Normal Inspection, Supple, Non-Tender, Full Range of Motion Respiratory/Chest: No Respiratory Distress, Lungs Clear, Normal Breath Sounds, No Accessory Muscle Use, Chest Non-Tender Cardiovascular: Normal Peripheral Pulses, Regular Rate, Rhythm, No Edema, No Gallop, No JVD, No Murmur, No Rub GI/Abdominal: Normal Bowel Sounds, Soft, Non-Tender, No Organomegaly, No Distention, No Abnormal Bruit, No Mass (Male) Exam: Deferred Rectal (Males) Exam: Deferred Back Exam: Normal Inspection, Full Range of Motion, NT Extremities: Normal Inspection, Normal Range of Motion, Non-Tender, Normal Capillary Refill, No Pedal Edema Neurological: Alert, Oriented, CN II-XII Intact, Normal Cognition, Normal Gait, Normal Reflexes, No Motor/Sensory Deficits Psychiatric: Normal Affect, Normal Mood Skin Exam: Warm, Dry, Intact, Normal Color, No Rash Lymphatic: No Adenopathy EKG INTERPRETATION EKG Date: 07/14/17 Time: 14:38 Rhythm: NSR Rate (Beats/Min): 78 [place]: Normal P-Wave: Present QRS: Normal ST-T: Normal QT: Normal Comparison: No Change Course - Orders/Labs/Meds Orders: Active Orders 24 hr Category Date Time Status EKG 12 Lead [EKG Documentation Completion] [RC] STAT Care 07/14/17 15:02 Active Labs: Laboratory Tests 07/14/17 07/14/17 Range/Units 15:08 15:08 WBC 7.4 (5.0-10.0) 10^3/uL RBC 4.83 (4.6-6.2) 10^6/uL Hgb 13.9 L (14.0-18.0) g/dL Hct 41.2 (40.0-54.0) % MCV 85.3 (80-100) fL MCH 28.8 (27.0-34.0) pg MCHC 33.7 (33.0-35.0) g/dL Plt Count 351 (150-450) 10^3/uL Neut % (Auto) 50.6 (42.2-75.2) % Lymph % (Auto) 37.8 (20.5-50.1) % [place] % (Auto) 7.9 (2-8) % Eos % (Auto) 2.7 (1.0-3.0) % Baso % (Auto) 1.0 (0.0-1.0) % Sodium 136 (135-145) mmol/L Potassium 4.4 (3.6-5.0) mmol/L Chloride 100 L (101-111) mmol/L Carbon Dioxide 30.0 (21.0-31.0) mmol/L Anion Gap 10.4 BUN 9 (7-18) mg/dL Creatinine 0.6 (0.6-1.3) mg/dL Est Cr Clr Drug Dosing TNP Estimated GFR (MDRD) > 60 BUN/Creatinine Ratio 15.00 Glucose 103 (74-105) mg/dL Calcium 8.9 (8.4-10.2) mg/dl Total Bilirubin 0.8 (0.2-1.0) mg/dL AST 32 (10-42) IU/L ALT 34 (10-60) IU/L Alkaline Phosphatase 80 (42-121) IU/L Troponin I < 0.02 (0.00-0.02) ng/ml Total Protein 7.1 (6.7-8.2) g/dl Albumin 3.7 (3.2-5.5) g/dl Globulin 3.4 Albumin/Globulin Ratio 1.09 Departure - Departure Time of Disposition: 16:53 Disposition: Home, Self-Care 01 Condition: Good Clinical Impression: Chest wall pain Instructions: Chest Wall Pain, [id number] Forms: ED Department Discharge Care Plan Goals: Labs, xray, and EKG reviewed with patient. May use tyenol/ibuprofen as needed for pain. Follow-up in the clinic if not improving in the next week. Return to the ER if you develop worsening chest pain, shortness of breath or other concerning symptoms. Patient verbalizes understanding. Denies any further questions or concerns at this time. - My Orders Last 24 Hours: My Active Orders 07/14/17 15:02 EKG 12 Lead [EKG Documentation Completion] [RC] STAT - Assessment/Plan Last 24 Hours: My Active Orders 07/14/17 15:02 EKG 12 Lead [EKG Documentation Completion] [RC] STAT
--- NOTE | 2017-07-14 15:28 | CR ---
CLINICAL HISTORY: 37-year-old male with chest pain. INTERPRETATION: Reasonable inspiratory effort morbidly obese male with normal cardiac silhouette. No new signs of alveolar edema or dependent pleural fluid accumulation when compared directly to prev ious exam 16 December 2016. No new lung mass, hilar lymphadenopathy or focal lobar pneumonia. No atelectasis/collapse. No pneumothorax. CONCLUSION: No acute new cardiopulmonary abnormality.
[2017-07-14 15:42] LABS: CHLORIDE,CL 100 mmol/L (101-111); SODIUM,NA 136 mmol/L (135-145)
== END 2017-07-14 17:01 | disposition home or self-care (01) ==
LOC: DL.ED 14:21
DX: R07.89 Other chest pain (principal); I10 Essential (primary) hypertension; E11.9 Type 2 diabetes mellitus without complications; Z79.82 Long term (current) use of aspirin; Z87.891 Personal history of nicotine dependence; Z88.8 Allergy status to other drugs, medicaments and biological substances; Z79.899 Other long term (current) drug therapy
CPT/HCPCS: 36415; 71045; 80053; 84484; 85025; 93005; 99285

== ENCOUNTER 2017-08-26 01:10 | Emergency (ER) | payer OTHER, MEDICAID ==
[2017-08-26 01:23] VITALS: BP 131/74
--- NOTE | 2017-08-26 01:32 | EDM.PDOC ---
ED HPI GENERAL MEDICAL PROBLEM - General Chief Complaint: Chest Pain Stated Complaint: CHEST PAIN [id number] Time Seen by Provider: 08/26/17 01:31 Source of Information: Reports: Patient History Limitations: Reports: No Limitations - History of Present Illness INITIAL COMMENTS - FREE TEXT/NARRATIVE: intermittant ache to left upper chest to shoulder, tylenol helped at noon yesteday. has not repeated. No SOB, No nausea. Was using hand saw with left arm day prior. Left Anterior Chest Pain Score (Numeric/FACES): 4 - Related Data Allergies Allergy/AdvReac Type Severity Reaction Status Date / Time No Known Allergies Allergy Verified 08/26/17 01:23 Home Meds: Home Meds Aspirin 81 mg PO DAILY 02/26/15 [History] Hydrochlorothiazide 25 mg PO DAILY 02/26/15 [History] Lisinopril 10 mg PO DAILY 02/26/15 [History] Pantoprazole [Protonix] 40 mg PO DAILY 02/26/15 [History] amLODIPine Besylate [Amlodipine Besylate] 5 mg PO DAILY 02/26/15 [History] Celecoxib [CeleBREX] 100 mg PO ASDIRECTED PRN 07/12/16 [History] Past Medical History HEENT History: Reports: Impaired Vision Other HEENT History: WEARS CORRECTIVE LENSES Cardiovascular History: Reports: Hypertension Other Cardiovascular History: HYPERLIPIDEMIA Gastrointestinal History: Reports: GERD Musculoskeletal History: Reports: None Endocrine/Metabolic History: Reports: Diabetes, Type II, Obesity/BMI 30+ Other Endocrine/Metabolic History: diet control. Dermatologic History: Reports: Other (See Below) Other Dermatologic History: currently being treated for abscess to lower right abd. - Infectious Disease History Infectious Disease History: Reports: Chicken Pox - Past Surgical History GI Surgical History: Reports: None Musculoskeletal Surgical History: Reports: Other (See Below) Social & Family History - Family History Family Medical History: Noncontributory HEENT: Reports: Macular Degeneration Other HEENT Family History: Dad Cardiac: Reports: Heart Failure Other Cardiac Family History: Dad Respiratory: Reports: COPD Psychiatric: Reports: PTSD Other Psychiatric Family History: Dad Endocrine/Metabolic: Reports: Diabetes, type II Other Endocrine/Metabolic Family History: mom Hematologic: Reports: None - Tobacco Use Smoking Status *Q: Light Tobacco Smoker Years of Tobacco use: 2 Packs/Tins Daily: 4 Used Tobacco, but Quit: No Second Hand Smoke Exposure: No - Caffeine Use Caffeine Use: Reports: Soda, Tea - Recreational Drug Use Recreational Drug Use: No ED ROS GENERAL - Review of Systems Review Of Systems: ROS reveals no pertinent complaints other than HPI. ED EXAM, GENERAL - Physical Exam Exam: See Below Exam Limited By: No Limitations General Appearance: Alert, No Apparent Distress, Anxious Eye Exam: Bilateral Eye: EOMI Ears: Normal External Exam Nose: Normal Inspection Throat/Mouth: Normal Inspection, Normal Voice Head: Atraumatic, Normocephalic Neck: Normal Inspection Respiratory/Chest: No Respiratory Distress, Lungs Clear, Normal Breath Sounds Cardiovascular: Normal Peripheral Pulses, Regular Rate, Rhythm, No Murmur GI/Abdominal: Normal Bowel Sounds Extremities: Normal Inspection, Normal Range of Motion, Other (point tenderness anterior left shoulder, increase with ROM.) Neurological: Alert, Oriented, Normal Cognition Psychiatric: Normal Affect Skin Exam: Warm, Dry, Intact, Normal Color EKG INTERPRETATION Rhythm: NSR Course - Vital Signs Last Recorded V/S: Last Vital Signs Temp 98 F 08/26/17 01:15 Pulse 68 08/26/17 01:15 Resp 22 H 08/26/17 01:15 BP 131/74 08/26/17 01:15 Pulse Ox 98 08/26/17 01:15 - Orders/Labs/Meds Orders: Active Orders 24 hr Category Date Time Status EKG Documentation Completion [RC] URGENT Care 08/26/17 01:15 Active Labs: Laboratory Tests 08/26/17 08/26/17 Range/Units 01:28 01:28 WBC 9.6 (5.0-10.0) 10^3/uL RBC 4.90 (4.6-6.2) 10^6/uL Hgb 14.1 (14.0-18.0) g/dL Hct 42.0 (40.0-54.0) % MCV 85.7 (80-100) fL MCH 28.8 (27.0-34.0) pg MCHC 33.6 (33.0-35.0) g/dL Plt Count 364 (150-450) 10^3/uL Neut % (Auto) 39.5 L (42.2-75.2) % Lymph % (Auto) 46.6 (20.5-50.1) % [place] % (Auto) 9.4 H (2-8) % Eos % (Auto) 3.7 H (1.0-3.0) % Baso % (Auto) 0.8 (0.0-1.0) % Sodium 136 (135-145) mmol/L Potassium 3.9 (3.6-5.0) mmol/L Chloride 104 (101-111) mmol/L Carbon Dioxide 27.0 (21.0-31.0) mmol/L Anion Gap 8.9 BUN 8 (7-18) mg/dL Creatinine 0.6 (0.6-1.3) mg/dL Est Cr Clr Drug Dosing TNP Estimated GFR (MDRD) > 60 BUN/Creatinine Ratio 13.33 Glucose 98 (74-105) mg/dL Calcium 8.6 (8.4-10.2) mg/dl Total Bilirubin 0.5 (0.2-1.0) mg/dL AST 31 (10-42) IU/L ALT 32 (10-60) IU/L Alkaline Phosphatase 82 (42-121) IU/L Troponin I < 0.02 (0.00-0.02) ng/ml Total Protein 7.2 (6.7-8.2) g/dl Albumin 3.8 (3.2-5.5) g/dl Globulin 3.4 Albumin/Globulin Ratio 1.12 Amylase 38 (28-100) U/L Lipase 26 (22-51) U/L Departure - Departure Time of Disposition: 02:30 Disposition: Home, Self-Care 01 Condition: Good Clinical Impression: Non-cardiac chest pain Instructions: Chest Wall Pain Forms: ED Department Discharge Additional Instructions: Light activity warm pack to shoulder ibuprofen or tylenol for discomfort, every 6 hours as needed for discomfort - My Orders Last 24 Hours: My Active Orders 08/26/17 01:15 EKG Documentation Completion [RC] URGENT - Assessment/Plan Last 24 Hours: My Active Orders 08/26/17 01:15 EKG Documentation Completion [RC] URGENT
[2017-08-26 02:16] LABS: CHLORIDE,CL 104 mmol/L (101-111); SODIUM,NA 136 mmol/L (135-145)
--- NOTE | 2017-08-30 09:46 | EKG ---
08/26/2017- CESIA RASMUSSEN - A 12-lead EKG shows normal sinus rhythm with first-degree AV block, MT interval of 212. No significant ST elevation or ST depression noted on this 12-lead EKG. [facility] /[id number]
== END 2017-08-26 02:40 | disposition home or self-care (01) ==
LOC: DL.ED 01:10
DX: R07.89 Other chest pain (principal); E11.9 Type 2 diabetes mellitus without complications; E66.9 Obesity, unspecified; Z87.891 Personal history of nicotine dependence; Z79.82 Long term (current) use of aspirin; Z79.899 Other long term (current) drug therapy
CPT/HCPCS: 36415; 80053; 82150; 83690; 84484; 85025; 93005; 99285

== ENCOUNTER 2017-09-26 14:53 | Emergency (ER) | payer OTHER, MEDICAID ==
[2017-09-26 15:06] VITALS: BP 135/76
--- NOTE | 2017-09-27 07:33 | EDM.PDOC ---
Scribed by Nayely Narvaez 09/27/17 0733 for Rani Jc NP ED HPI GENERAL MEDICAL PROBLEM - General Chief Complaint: Fever Stated Complaint: FEVER AND COLD [id number] Time Seen by Provider: 09/26/17 17:10 Source of Information: Reports: Patient, RN, RN Notes Reviewed History Limitations: Reports: No Limitations - History of Present Illness INITIAL COMMENTS - FREE TEXT/NARRATIVE: Patient presents to ER with complaint of fever and chills beginning last night. He has a sore throat, diarrhea, headache, sinus congestion and body aches. He has had no cough, nausea, vomiting, chest pain or shortness of breath. Onset: Today, Sudden Onset Date: 09/25/17 Duration: Getting Worse Location: Reports: Generalized Quality: Reports: Ache Severity: Moderate Improves with: Reports: None Worsens with: Reports: None Treatments [employer]: Reports: Acetaminophen - Related Data Allergies Allergy/AdvReac Type Severity Reaction Status Date / Time No Known Allergies Allergy Verified 09/26/17 15:04 Home Meds: Home Meds Aspirin 81 mg PO DAILY 02/26/15 [History] Hydrochlorothiazide 25 mg PO DAILY 02/26/15 [History] Lisinopril 10 mg PO DAILY 02/26/15 [History] Pantoprazole [Protonix] 40 mg PO DAILY 02/26/15 [History] amLODIPine Besylate [Amlodipine Besylate] 5 mg PO DAILY 02/26/15 [History] Celecoxib [CeleBREX] 100 mg PO ASDIRECTED PRN 07/12/16 [History] Acetaminophen [Tylenol Extra Strength] 1,000 mg PO PRN 09/26/17 [History] Past Medical History HEENT History: Reports: Impaired Vision Other HEENT History: WEARS CORRECTIVE LENSES Cardiovascular History: Reports: Hypertension Other Cardiovascular History: HYPERLIPIDEMIA Gastrointestinal History: Reports: GERD Musculoskeletal History: Reports: None Endocrine/Metabolic History: Reports: Diabetes, Type II, Obesity/BMI 30+ Other Endocrine/Metabolic History: diet control. Dermatologic History: Reports: Other (See Below) Other Dermatologic History: currently being treated for abscess to lower right abd. - Infectious Disease History Infectious Disease History: Reports: Chicken Pox - Past Surgical History GI Surgical History: Reports: None Social & Family History - Family History Family Medical History: Noncontributory HEENT: Reports: Macular Degeneration Other HEENT Family History: Dad Cardiac: Reports: Heart Failure Other Cardiac Family History: Dad Respiratory: Reports: COPD Psychiatric: Reports: PTSD Other Psychiatric Family History: Dad Endocrine/Metabolic: Reports: Diabetes, type II Other Endocrine/Metabolic Family History: mom Hematologic: Reports: None - Tobacco Use Smoking Status *Q: Former Smoker Used Tobacco, but Quit: Yes Month/Year Tobacco Last Used: 3 - Caffeine Use Caffeine Use: Reports: Tea - Recreational Drug Use Recreational Drug Use: No ED ROS ENT - Review of Systems Review Of Systems: ROS reveals no pertinent complaints other than HPI. ED EXAM, ENT - Physical Exam Exam: See Below Exam Limited By: No Limitations General Appearance: Alert, WD/WN, No Apparent Distress Eye Exam: Bilateral Eye: EOMI, Normal Inspection Ears: Other (TMs dulle) Nose: Normal Inspection, Normal Mucousa, No Blood Mouth/Throat: Normal Inspection, Normal Gums, Normal Lips, Normal Oropharynx, Normal Teeth Head: Atraumatic, Normocephalic Neck: Normal Inspection, Supple, Non-Tender, Full Range of Motion Respiratory/Chest: No Respiratory Distress, Lungs Clear, Normal Breath Sounds, No Accessory Muscle Use, Chest Non-Tender Cardiovascular: Normal Peripheral Pulses, Regular Rate, Rhythm, No Edema, No Gallop, No JVD, No Murmur, No Rub GI/Abdominal: Normal Bowel Sounds, Soft, Non-Tender, No Organomegaly, No Distention, No Abnormal Bruit, No Mass (Male) Exam: Deferred Rectal (Males) Exam: Deferred Back: Normal Inspection, Full Range of Motion Extremities: Normal Inspection, Normal Range of Motion, Non-Tender, No Pedal Edema, Normal Capillary Refill Neurological: Alert, Oriented, CN II-XII Intact, Normal Cognition, Normal Gait, Normal Reflexes, No Motor/Sensory Deficits Psychiatric: Normal Affect, Normal Mood Skin: Warm, Dry, Intact, Normal Color, No Rash Lymphatic: No Adenopathy Course - Vital Signs Last Recorded V/S: Last Vital Signs Temp 99.8 F 09/26/17 15:04 Pulse 88 09/26/17 15:04 Resp 18 09/26/17 15:04 BP 135/76 09/26/17 15:04 Pulse Ox 97 09/26/17 15:04 - Orders/Labs/Meds Labs: Rapid strep: Negative. Influenza A and B: Negative Departure - Departure Time of Disposition: 17:29 Disposition: Home, Self-Care 01 Condition: Good Clinical Impression: Viral URI - Discharge Information Instructions: Upper Respiratory Infection, Adult, [id number] Forms: ED Department Discharge Additional Instructions: RX: Flonase. Ibuprofen and Tylenol as directed for fever and pain. Follow up with our primary care facility. I have read and agree with the documentation that has been completed regarding this visit. By signing this record, I attest that the documentation was completed in my physical presence and is an accurate record of the encounter.
== END 2017-09-26 17:42 | disposition home or self-care (01) ==
LOC: DL.ED 14:53
DX: J06.9 Acute upper respiratory infection, unspecified (principal); E11.9 Type 2 diabetes mellitus without complications; E66.9 Obesity, unspecified; Z79.899 Other long term (current) drug therapy; Z87.891 Personal history of nicotine dependence
CPT/HCPCS: 87081; 87430; 87804; 99283

== ENCOUNTER 2018-06-05 16:23 | Emergency (ER) | payer BC, MEDICAID ==
[2018-06-05] MEDS ORDERED: Aspirin 81 MG Tab.Chew PO ONE (16:50)
[2018-06-05] MEDS: Sodium Chloride 0.9% 10 ML Syringe FLUSH PRN ×2 (17:04→18:19)
[2018-06-05 17:15] VITALS: BP 118/59
[2018-06-05 17:32] LABS: ANION GAP 12.7; CHLORIDE,CL 103 mmol/L (101-111); SODIUM,NA 137 mmol/L (135-145)
[2018-06-05] MEDS ORDERED: Famotidine 20 MG/2 ML SDV IVPUSH ONE (18:15)
--- NOTE | 2018-06-05 18:24 | EDM.PDOC ---
Scribed by Nayely Narvaez 06/05/18 1721 for Zhao Hunter MD ED HPI GENERAL MEDICAL PROBLEM - General Chief Complaint: Chest Pain Stated Complaint: CHEST PAIN Time Seen by Provider: 06/05/18 16:41 Source of Information: Reports: Patient, RN, RN Notes Reviewed History Limitations: Reports: No Limitations - History of Present Illness INITIAL COMMENTS - FREE TEXT/NARRATIVE: Patient presents to ER by POV with complaint of left upper chest pain that began this morning that was intermittent throughout the day but persistent for the past several hours. Denies shortness of breath. Admits to mild nausea this morning but none since. The pain does not radiate. The patient states that he has had multiple episodes of this exact same pain over the past several years for which he has had multiple cardiac work ups including referral to cardiology with advanced cardiac testing. He states that he has never had findings of coronary artery disease or any cardiogenic source of his pain. He states that the last visit he had with the prosthetic technician he was told that he did not need to follow with cardiology any further because "there was nothing wrong with his heart". Nothing alleviates or aggravates his pain. He denies any cough, fever, chills, edema or palpitations. Onset: Today Duration: Constant Location: Reports: Chest Quality: Reports: Ache Severity: Moderate Improves with: Reports: None Worsens with: Reports: None Associated Symptoms: Reports: No Other Symptoms Middle Sternum Pain Score (Numeric/FACES): 5 - Related Data Allergies Allergy/AdvReac Type Severity Reaction Status Date / Time No Known Allergies Allergy Verified 06/05/18 17:15 Home Meds: Home Meds Aspirin 81 mg PO DAILY 02/26/15 [History] Lisinopril 10 mg PO DAILY 02/26/15 [History] Pantoprazole [Protonix] 40 mg PO DAILY 02/26/15 [History] amLODIPine Besylate [Amlodipine Besylate] 5 mg PO DAILY 02/26/15 [History] Acetaminophen [Tylenol Extra Strength] 1,000 mg PO Q6H PRN 09/26/17 [History] Past Medical History HEENT History: Reports: Impaired Vision Other HEENT History: WEARS CORRECTIVE LENSES Cardiovascular History: Reports: Hypertension Other Cardiovascular History: HYPERLIPIDEMIA Gastrointestinal History: Reports: GERD Musculoskeletal History: Reports: None Endocrine/Metabolic History: Reports: Diabetes, Type II, Obesity/BMI 30+ Other Endocrine/Metabolic History: diet control. Dermatologic History: Reports: Other (See Below) Other Dermatologic History: currently being treated for abscess to lower right abd. - Infectious Disease History Infectious Disease History: Reports: Chicken Pox - Past Surgical History GI Surgical History: Reports: None Social & Family History - Family History Family Medical History: Noncontributory HEENT: Reports: Macular Degeneration Other HEENT Family History: Dad Cardiac: Reports: Heart Failure Other Cardiac Family History: Dad Respiratory: Reports: COPD Psychiatric: Reports: PTSD Other Psychiatric Family History: Dad Endocrine/Metabolic: Reports: Diabetes, type II Other Endocrine/Metabolic Family History: mom Hematologic: Reports: None - Tobacco Use Smoking Status *Q: Never Smoker - Caffeine Use Caffeine Use: Reports: Tea - Alcohol Use Alcohol Use History: No - Recreational Drug Use Recreational Drug Use: No - Living Situation & Occupation Living situation: Reports: , with Family Occupation: Employed ED ROS GENERAL - Review of Systems Review Of Systems: ROS reveals no pertinent complaints other than HPI. ED EXAM, GENERAL - Physical Exam Exam: See Below Exam Limited By: No Limitations General Appearance: Alert, WD/WN, No Apparent Distress, Anxious, Obese Eye Exam: Bilateral Eye: EOMI, Normal Inspection, PERRL Ears: Normal External Exam, Normal Canal, Hearing Grossly Normal, Normal TMs Nose: Normal Inspection, Normal Mucosa, No Blood Throat/Mouth: Normal Inspection, Normal Lips, Normal Teeth, Normal Gums, Normal Oropharynx, Normal Voice, No Airway Compromise Head: Atraumatic, Normocephalic Neck: Normal Inspection, Supple, Non-Tender, Full Range of Motion Respiratory/Chest: No Respiratory Distress, Lungs Clear, Normal Breath Sounds, No Accessory Muscle Use, Chest Non-Tender Cardiovascular: Normal Peripheral Pulses, Regular Rate, Rhythm, No Edema, No Gallop, No JVD, No Murmur, No Rub GI/Abdominal: Other (benign obese) (Male) Exam: Deferred Rectal (Males) Exam: Deferred Back Exam: Normal Inspection, Full Range of Motion, NT Extremities: Normal Inspection, Normal Range of Motion, Non-Tender, Normal Capillary Refill, No Pedal Edema Neurological: Alert, Oriented, CN II-XII Intact, Normal Cognition, Normal Gait, Normal Reflexes, No Motor/Sensory Deficits Psychiatric: Normal Affect, Normal Mood Skin Exam: Warm, Dry, Intact, Normal Color, No Rash EKG INTERPRETATION EKG Date: 06/05/18 Time: 16:28 Rhythm: Other (sinus rhythm) Rate (Beats/Min): 83 [place]: RAD-Right [place] Deviation P-Wave: Present QRS: Other (ventricular bigeminy') ST-T: Normal QT: Normal Course - Vital Signs Last Recorded V/S: Last Vital Signs Temp 36.4 C 06/05/18 16:50 Pulse 71 06/05/18 16:50 Resp 16 06/05/18 16:50 BP 118/59 L 06/05/18 16:50 Pulse Ox 98 06/05/18 16:50 - Orders/Labs/Meds Orders: Active Orders 24 hr Category Date Time Status EKG 12 Lead [EKG Documentation Completion] [RC] STAT Care 06/05/18 16:37 Active Peripheral IV Care [RC] . DIRECTED Care 06/05/18 16:49 Active Chest 1V Frontal [CR] Stat Exams 06/05/18 16:49 Taken Sodium Chloride 0.9% [Saline Flush] Med 06/05/18 16:49 Active 10 ml FLUSH ASDIRECTED PRN Peripheral IV Insertion Adult [OM.PC] Stat Oth 06/05/18 16:49 Ordered Medication Orders Sodium Chloride (Saline Flush) 10 ml FLUSH ASDIRECTED PRN PRN Reason: Keep Vein Open Last Admin: 06/05/18 17:04 Dose: 10 ml Labs: Laboratory Tests 06/05/18 06/05/18 06/05/18 Range/Units 16:57 16:57 16:57 WBC 10.0 (5.0-10.0) 10^3/uL RBC 4.57 L (4.6-6.2) 10^6/uL Hgb 13.0 L (14.0-18.0) g/dL Hct 38.8 L (40.0-54.0) % MCV 84.9 (80-100) fL MCH 28.4 (27.0-34.0) pg MCHC 33.5 (33.0-35.0) g/dL Plt Count 347 (150-450) 10^3/uL Neut % (Auto) 45.6 (42.2-75.2) % Lymph % (Auto) 41.0 (20.5-50.1) % [place] % (Auto) 9.6 H (2-8) % Eos % (Auto) 3.0 (1.0-3.0) % Baso % (Auto) 0.8 (0.0-1.0) % D-Dimer, Quantitative < 100 (0-400) ng/mL Sodium 137 (135-145) mmol/L Potassium 3.7 (3.6-5.0) mmol/L Chloride 103 (101-111) mmol/L Carbon Dioxide 25.0 (21.0-31.0) mmol/L Anion Gap 12.7 BUN 9 (7-18) mg/dL Creatinine 0.8 (0.6-1.3) mg/dL Est Cr Clr Drug Dosing 148.17 mL/min Estimated GFR (MDRD) > 60 BUN/Creatinine Ratio 11.25 Glucose 95 (74-105) mg/dL Calcium 8.5 (8.4-10.2) mg/dl Magnesium 1.7 L (1.8-2.5) mg/dL Total Bilirubin 0.7 (0.2-1.0) mg/dL AST 34 (10-42) IU/L ALT 40 (10-60) IU/L Alkaline Phosphatase 84 (42-121) IU/L Troponin I < 0.02 (0.00-0.02) ng/ml Total Protein 7.2 (6.7-8.2) g/dl Albumin 3.7 (3.2-5.5) g/dl Globulin 3.5 Albumin/Globulin Ratio 1.06 Lipase 29 (22-51) U/L TSH, Ultra Sensitive (0.45-5.33) uIu/mL 06/05/18 Range/Units 16:57 WBC (5.0-10.0) 10^3/uL RBC (4.6-6.2) 10^6/uL Hgb (14.0-18.0) g/dL Hct (40.0-54.0) % MCV (80-100) fL MCH (27.0-34.0) pg MCHC (33.0-35.0) g/dL Plt Count (150-450) 10^3/uL Neut % (Auto) (42.2-75.2) % Lymph % (Auto) (20.5-50.1) % [place] % (Auto) (2-8) % Eos % (Auto) (1.0-3.0) % Baso % (Auto) (0.0-1.0) % D-Dimer, Quantitative (0-400) ng/mL Sodium (135-145) mmol/L Potassium (3.6-5.0) mmol/L Chloride (101-111) mmol/L Carbon Dioxide (21.0-31.0) mmol/L Anion Gap BUN (7-18) mg/dL Creatinine (0.6-1.3) mg/dL Est Cr Clr Drug Dosing mL/min Estimated GFR (MDRD) BUN/Creatinine Ratio Glucose (74-105) mg/dL Calcium (8.4-10.2) mg/dl Magnesium (1.8-2.5) mg/dL Total Bilirubin (0.2-1.0) mg/dL AST (10-42) IU/L ALT (10-60) IU/L Alkaline Phosphatase (42-121) IU/L Troponin I (0.00-0.02) ng/ml Total Protein (6.7-8.2) g/dl Albumin (3.2-5.5) g/dl Globulin Albumin/Globulin Ratio Lipase (22-51) U/L TSH, Ultra Sensitive 2.43 (0.45-5.33) uIu/mL Meds: Medications Generic Name Dose Route Start Last Admin Trade Name Freq PRN Reason Stop Dose Admin Sodium Chloride 10 ml 06/05/18 16:49 06/05/18 17:04 Saline Flush FLUSH 10 ml ASDIRECTED PRN Administration Keep Vein Open Discontinued Medications Generic Name Dose Route Start Last Admin Trade Name Freq PRN Reason Stop Dose Admin Aspirin 324 mg 06/05/18 16:50 06/05/18 17:08 Aspirin PO 06/05/18 16:51 324 mg ONETIME ONE Administration Famotidine 20 mg 06/05/18 18:15 Pepcid IVPUSH 06/05/18 18:16 ONETIME ONE - Radiology Interpretation Free Text/Narrative:: [facility] [place] [facility] Final Radiology Report Call: [phone] assistance Online chat: [email or web address] Name: CESIA RASMUSSEN Age: 38Years M Date: 06/05/2018 SSN: -- : [id number] Study: XR CHEST 1 VIEW Requesting Physician: ZHAO HUNTER Images: 1 Addl Studies: Provided Clinical History: Contrast: Contrast Medium: Contrast Amount: Contrast Method: CONFIDENTIALITY STATEMENT This report is intended only for use by the referring physician, and only in accordance with law. If you received this in error, call [phone]. Page 1 of 1 EXAM: XR Chest, 1 View EXAM DATE/TIME: 06/05/2018 5:04 PM CLINICAL HISTORY: 38 years old, male; Signs and symptoms; Other: Chest pain TECHNIQUE: XR of the chest, 1 view. COMPARISON: CR Chest 1V Frontal 07/14/2017 3:06 PM FINDINGS: Lungs: There is persistent mild vascular congestion . No focal consolidation. Pleural space: Unremarkable. No pleural effusion. No pneumothorax. Heart/Mediastinum: Unremarkable. No cardiomegaly. Bones/joints: Unremarkable. IMPRESSION: Persistent mild vascular congestion Thank you for allowing us to participate in the care of your patient. Dictated and Authenticated by: Jone Collier MD 06/05/2018 5:18 PM Central Time ([place] & [place]) - Re-Assessments/Exams Free Text/Narrative Re-Assessment/Exam: 06/05/18 18:18 Negative cardiac work up at today's ER visit. Pt has Hx of GERD, and given the recurrent nature and extensive past negative cardiac evaluations, I suspect the pt may be having chest pain from esophageal spasm as most other potential sources have been ruled out. Pt takes Omeprazole daily. I will add Ranitidine 150mg BID and advise him to f/u in clinic next week for recheck with his PCP. Departure - Departure Time of Disposition: 18:21 Disposition: Home, Self-Care 01 Condition: Good Clinical Impression: Atypical chest pain, Esophageal spasm Instructions: Esophageal Spasm, Nonspecific Chest Pain, [id number] Forms: ED Department Discharge Additional Instructions: Rx: Ranitidine 150mg Continue Omeprazole as prescribed. [place] diet. Avoid spicy and greasy foods, caffeine, alcohol, chocolate, mint, and nicotine. Follow up in clinic with Dr. Go as planned. - My Orders Last 24 Hours: My Active Orders 06/05/18 16:37 EKG 12 Lead [EKG Documentation Completion] [RC] STAT 06/05/18 16:49 Peripheral IV Care [RC] . DIRECTED Chest 1V Frontal [CR] Stat Sodium Chloride 0.9% [Saline Flush] 10 ml FLUSH ASDIRECTED PRN Peripheral IV Insertion Adult [OM.PC] Stat - Assessment/Plan Last 24 Hours: My Active Orders 06/05/18 16:37 EKG 12 Lead [EKG Documentation Completion] [RC] STAT 06/05/18 16:49 Peripheral IV Care [RC] . DIRECTED Chest 1V Frontal [CR] Stat Sodium Chloride 0.9% [Saline Flush] 10 ml FLUSH ASDIRECTED PRN Peripheral IV Insertion Adult [OM.PC] Stat I have read and agree with the documentation that has been completed regarding this visit. By signing this record, I attest that the documentation was completed in my physical presence and is an accurate record of the encounter.
== END 2018-06-05 18:29 | disposition home or self-care (01) ==
LOC: DL.ED 16:23
DX: K22.4 Dyskinesia of esophagus (principal); R07.89 Other chest pain; I10 Essential (primary) hypertension; Z79.82 Long term (current) use of aspirin; Z79.899 Other long term (current) drug therapy
CPT/HCPCS: 36415; 71045; 80053; 83690; 83735; 84443; 84484; 85025; 85379; 93005; 96374; 99285; A9270; J3490

== ENCOUNTER 2020-02-27 13:55 | Emergency (ER) | payer BC, OTHER ==
[2020-02-27] MEDS ORDERED: Sodium Chloride 0.9% 10 ML Syringe FLUSH PRN (14:12)
[2020-02-27 14:13] VITALS: BP 132/85; PULSE 74
--- NOTE | 2020-02-27 14:25 | EDM.PDOC ---
ED HPI GENERAL MEDICAL PROBLEM - General Chief Complaint: Chest Pain Stated Complaint: CHEST PAINS Time Seen by Provider: 02/27/20 14:30 Source of Information: Reports: Patient, RN, RN Notes Reviewed History Limitations: Reports: No Limitations - History of Present Illness INITIAL COMMENTS - FREE TEXT/NARRATIVE: Patient presents to the ED via personal vehicle with complaints of chest pain. Per the patient, the pain began abruptly while he was driving. It was localized to the left, mid-sternal region and did not radiate. He denies vision changes, palpitations, chest pressure, or shortness of breath during the episode. He did not take any medications for this pain. He denies dyspepsia, dysuria, hematuria, melena, hematochezia, or changes to bowel/bladder pattern. He denies cough, fever, shaking chills, or recent illness. He does attest to a history of this pain about 7 years ago; work up at the time was benign. He was subsequently sent to gastroenterology and cardiology which did not reveal any insidious problems. Left Chest Pain Score (Numeric/FACES): 6 - Related Data Allergies Allergy/AdvReac Type Severity Reaction Status Date / Time No Known Allergies Allergy Verified 02/27/20 14:06 Home Meds: Home Meds Aspirin 81 mg PO DAILY 02/26/15 [History] Lisinopril 20 mg PO DAILY 02/26/15 [History] Acetaminophen [Tylenol Extra Strength] 1,000 mg PO Q6H PRN 09/26/17 [History] Cetirizine [ZyrTEC] 10 mg PO DAILY 02/27/20 [History] Cholecalciferol (Vitamin D3) [Vitamin D3] 2,000 unit PO DAILY 02/27/20 [History] Cyanocobalamin (Vitamin B-12) [Vitamin B-12] 100 mcg PO DAILY 02/27/20 [History] Fluticasone Propionate 2 spray NATHAN BID 02/27/20 [History] Liraglutide [Victoza 2-George] 1.2 mg SQ DAILY 02/27/20 [History] Magnesium Oxide [Magnesium] 400 mg PO DAILY 02/27/20 [History] Omeprazole 20 mg PO DAILY 02/27/20 [History] Pravastatin Sodium [Pravachol] 20 mg PO DAILY 02/27/20 [History] metFORMIN HCl [Metformin HCl] 1,000 mg PO BID 02/27/20 [History] Past Medical History HEENT History: Reports: Impaired Vision Other HEENT History: WEARS CORRECTIVE LENSES Cardiovascular History: Reports: Hypertension Other Cardiovascular History: HYPERLIPIDEMIA Gastrointestinal History: Reports: GERD Musculoskeletal History: Reports: None Endocrine/Metabolic History: Reports: Diabetes, Type II, Obesity/BMI 30+ Other Endocrine/Metabolic History: diet control. Dermatologic History: Reports: Other (See Below) Other Dermatologic History: currently being treated for abscess to lower right abd. - Infectious Disease History Infectious Disease History: Reports: Chicken Pox - Past Surgical History GI Surgical History: Reports: None Social & Family History - Family History Family Medical History: Noncontributory HEENT: Reports: Macular Degeneration Other HEENT Family History: Dad Cardiac: Reports: Heart Failure Other Cardiac Family History: Dad Respiratory: Reports: COPD Psychiatric: Reports: PTSD Other Psychiatric Family History: Dad Endocrine/Metabolic: Reports: Diabetes, type II Other Endocrine/Metabolic Family History: mom Hematologic: Reports: None - Caffeine Use Caffeine Use: Reports: Soda - Living Situation & Occupation Living situation: Reports: , with Family Occupation: Employed ED ROS GENERAL - Review of Systems Review Of Systems: Comprehensive ROS is negative, except as noted in HPI. ED EXAM, GENERAL - Physical Exam Exam: See Below Exam Limited By: No Limitations General Appearance: Alert, WD/WN, No Apparent Distress Throat/Mouth: Normal Voice, No Airway Compromise Neck: Normal Inspection, Supple, Non-Tender Respiratory/Chest: No Respiratory Distress, Lungs Clear, Normal Breath Sounds, No Accessory Muscle Use, Chest Non-Tender Cardiovascular: Normal Peripheral Pulses, Regular Rate, Rhythm, No Edema, No Gallop, No Murmur, No Rub Peripheral Pulses: 2+: Radial (L), Radial (R) GI/Abdominal: Normal Bowel Sounds, Soft, Non-Tender, No Distention, No Mass (Male) Exam: Deferred Rectal (Males) Exam: Deferred Back Exam: Normal Inspection, Full Range of Motion. No: CVA Tenderness (L), CVA Tenderness (R) Extremities: Normal Inspection, Normal Range of Motion, Non-Tender, No Pedal Edema, Normal Capillary Refill Neurological: Oriented, CN II-XII Intact Psychiatric: Normal Affect, Normal Mood Skin Exam: Warm, Dry, Intact, Normal Color, No Rash. No: Ecchymosis, Erythema, Mottled, Pallor, Petechiae, Rash #1 Interpretation EKG Date: 02/27/20 Time: 14:11 Rhythm: NSR Rate (Beats/Min): 76 [place]: Normal P-Wave: Present QRS: Normal ST-T: Normal QT: Normal Comparison: No Change EKG Interpretation Comments: NSR; PVCs; No evidence of acute ischemia Course - Vital Signs Last Recorded V/S: Last Vital Signs Temp 98.9 F 02/27/20 14:10 Pulse 74 02/27/20 14:10 Resp 18 02/27/20 14:10 BP 132/85 02/27/20 14:10 Pulse Ox 98 02/27/20 14:10 - Orders/Labs/Meds Orders: Active Orders 24 hr Category Date Time Status EKG Documentation Completion [RC] STAT Care 02/27/20 14:12 Active Peripheral IV Care [RC] . DIRECTED Care 02/27/20 14:12 Active Sodium Chloride 0.9% [Saline Flush] Med 02/27/20 14:12 Active 10 ml FLUSH ASDIRECTED PRN Peripheral IV Insertion Adult [OM.PC] Stat Oth 02/27/20 14:12 Ordered Medication Orders Sodium Chloride (Saline Flush) 10 ml FLUSH ASDIRECTED PRN PRN Reason: Keep Vein Open Labs: Laboratory Tests 02/27/20 02/27/20 02/27/20 Range/Units 14:19 14:19 14:24 WBC 9.7 (5.0-10.0) 10^3/uL RBC 5.15 (4.6-6.2) 10^6/uL Hgb 14.5 (14.0-18.0) g/dL Hct 44.2 (40.0-54.0) % MCV 85.8 (80-100) fL MCH 28.2 (27.0-34.0) pg MCHC 32.8 L (33.0-35.0) g/dL Plt Count 371 (150-450) 10^3/uL Neut % (Auto) 47.6 (42.2-75.2) % Lymph % (Auto) 40.2 (20.5-50.1) % [place] % (Auto) 7.9 (2-8) % Eos % (Auto) 3.7 H (1.0-3.0) % Baso % (Auto) 0.6 (0.0-1.0) % PT (9.0-12.0) SEC INR (0.9-1.2) APTT (22.0-34.0) SEC Sodium (136-145) mmol/L Potassium (3.5-5.1) mmol/L Chloride (98-107) mmol/L Carbon Dioxide (21-32) mmol/L Anion Gap (7-13) mEq/L BUN (7-18) mg/dL Creatinine (0.70-1.30) mg/dL Est Cr Clr Drug Dosing mL/min Estimated GFR (MDRD) BUN/Creatinine Ratio (No establ ref range) Glucose (74-99) mg/dL Lactic Acid (0.4-2.0) mmol/L Calcium (8.5-10.1) mg/dL Phosphorus (2.6-4.7) mg/dL Magnesium (1.8-2.4) mg/dL Total Bilirubin (0.2-1.0) mg/dL AST (15-37) U/L ALT (16-63) U/L Alkaline Phosphatase (46-116) U/L Troponin I (0.000-0.056) ng/mL C-Reactive Protein (0.0-0.9) mg/dL Total Protein (6.4-8.2) g/dL Albumin (3.4-5.0) g/dL Globulin Albumin/Globulin Ratio Urine Color Light yellow (YELLOW) Urine Appearance Clear (CLEAR) Urine pH 7.0 (5.0-9.0) Ur Specific [place] 1.010 (1.005-1.030) Urine Protein Negative (NEGATIVE) Urine Glucose (UA) Negative (NEGATIVE) Urine Ketones Negative (NEGATIVE) Urine Occult Blood Negative (NEGATIVE) Urine Nitrite Negative (NEGATIVE) Urine Bilirubin Negative (NEGATIVE) Urine Urobilinogen 0.2 (0.2-1.0) mg/dL Ur Leukocyte Esterase Trace H (NEGATIVE) Urine RBC 0-5 /HPF Urine WBC 0-5 (0-5/HPF) /HPF Ur Epithelial Cells Rare (NOT SEEN) /HPF Amorphous Sediment Occasional (NOT SEEN) /HPF Urine Bacteria Rare (0-FEW/HPF) /HPF Urine Mucus Rare (NOT SEEN) /LPF Urine Opiates Screen Negative (NEGATIVE) Ur Oxycodone Screen Negative (NEGATIVE) Urine Methadone Screen Negative (NEGATIVE) Ur Barbiturates Screen Negative (NEGATIVE) U Tricyclic Antidepress Negative (NEGATIVE) Ur Phencyclidine Scrn Negative (NEGATIVE) Ur Amphetamine Screen Negative (NEGATIVE) U Methamphetamines Scrn Negative (NEGATIVE) Urine MDMA Screen Negative (NEGATIVE) U Benzodiazepines Scrn Negative (NEGATIVE) Urine Cocaine Screen Negative (NEGATIVE) U Marijuana (THC) Screen Negative (NEGATIVE) 02/27/20 02/27/20 02/27/20 Range/Units 14:24 14:24 14:24 WBC (5.0-10.0) 10^3/uL RBC (4.6-6.2) 10^6/uL Hgb (14.0-18.0) g/dL Hct (40.0-54.0) % MCV (80-100) fL MCH (27.0-34.0) pg MCHC (33.0-35.0) g/dL Plt Count (150-450) 10^3/uL Neut % (Auto) (42.2-75.2) % Lymph % (Auto) (20.5-50.1) % [place] % (Auto) (2-8) % Eos % (Auto) (1.0-3.0) % Baso % (Auto) (0.0-1.0) % PT 10.1 (9.0-12.0) SEC INR 1.1 (0.9-1.2) APTT 28.3 (22.0-34.0) SEC Sodium 137 (136-145) mmol/L Potassium 3.8 (3.5-5.1) mmol/L Chloride 100 (98-107) mmol/L Carbon Dioxide 28 (21-32) mmol/L Anion Gap 12.8 (7-13) mEq/L BUN 11 (7-18) mg/dL Creatinine 0.76 (0.70-1.30) mg/dL Est Cr Clr Drug Dosing 154.42 mL/min Estimated GFR (MDRD) > 60 BUN/Creatinine Ratio 14.5 (No establ ref range) Glucose 104 H (74-99) mg/dL Lactic Acid 1.2 (0.4-2.0) mmol/L Calcium 8.7 (8.5-10.1) mg/dL Phosphorus 4.0 (2.6-4.7) mg/dL Magnesium 1.7 L (1.8-2.4) mg/dL Total Bilirubin 0.6 (0.2-1.0) mg/dL AST 46 H (15-37) U/L ALT 89 H (16-63) U/L Alkaline Phosphatase 94 (46-116) U/L Troponin I < 0.017 (0.000-0.056) ng/mL C-Reactive Protein 1.1 H (0.0-0.9) mg/dL Total Protein 7.6 (6.4-8.2) g/dL Albumin 3.5 (3.4-5.0) g/dL Globulin 4.1 Albumin/Globulin Ratio 0.9 Urine Color (YELLOW) Urine Appearance (CLEAR) Urine pH (5.0-9.0) Ur Specific [place] (1.005-1.030) Urine Protein (NEGATIVE) Urine Glucose (UA) (NEGATIVE) Urine Ketones (NEGATIVE) Urine Occult Blood (NEGATIVE) Urine Nitrite (NEGATIVE) Urine Bilirubin (NEGATIVE) Urine Urobilinogen (0.2-1.0) mg/dL Ur Leukocyte Esterase (NEGATIVE) Urine RBC /HPF Urine WBC (0-5/HPF) /HPF Ur Epithelial Cells (NOT SEEN) /HPF Amorphous Sediment (NOT SEEN) /HPF Urine Bacteria (0-FEW/HPF) /HPF Urine Mucus (NOT SEEN) /LPF Urine Opiates Screen (NEGATIVE) Ur Oxycodone Screen (NEGATIVE) Urine Methadone Screen (NEGATIVE) Ur Barbiturates Screen (NEGATIVE) U Tricyclic Antidepress (NEGATIVE) Ur Phencyclidine Scrn (NEGATIVE) Ur Amphetamine Screen (NEGATIVE) U Methamphetamines Scrn (NEGATIVE) Urine MDMA Screen (NEGATIVE) U Benzodiazepines Scrn (NEGATIVE) Urine Cocaine Screen (NEGATIVE) U Marijuana (THC) Screen (NEGATIVE) Meds: Medications Generic Name Dose Route Start Last Admin Trade Name Freq PRN Reason Stop Dose Admin Sodium Chloride 10 ml 02/27/20 14:12 Saline Flush FLUSH ASDIRECTED PRN Keep Vein Open - Re-Assessments/Exams Free Text/Narrative Re-Assessment/Exam: 02/27/20 15:29 Cardiac workup unremarkable. Will instruct patient to follow up with primary care. Departure - Departure Time of Disposition: 15:23 Disposition: Admitted As Inpatient 66 Condition: Good Clinical Impression: Chest wall pain, Ventricular bigeminy seen on cardiac rehabilitation specialist Forms: ED Department Discharge Additional Instructions: Follow up with primary care provider regarding ongoing transient chest wall pain. Return to ED with sustained chest pain, shortness of breath, and/or palpitations. Sepsis Event Note (ED) - Evaluation Sepsis Screening Result: No Definite Risk - Focused Exam Vital Signs: Vital Signs Temp Pulse Resp BP Pulse Ox 02/27/20 14:10 98.9 F 74 18 132/85 98 - My Orders Last 24 Hours: My Active Orders 02/27/20 14:12 EKG Documentation Completion [RC] STAT Peripheral IV Care [RC] . DIRECTED Sodium Chloride 0.9% [Saline Flush] 10 ml FLUSH ASDIRECTED PRN Peripheral IV Insertion Adult [OM.PC] Stat - Assessment/Plan Last 24 Hours: My Active Orders 02/27/20 14:12 EKG Documentation Completion [RC] STAT Peripheral IV Care [RC] . DIRECTED Sodium Chloride 0.9% [Saline Flush] 10 ml FLUSH ASDIRECTED PRN Peripheral IV Insertion Adult [OM.PC] Stat
[2020-02-27 14:53] LABS: ANION GAP 12.8 mEq/L (7-13); CHLORIDE,CL 100 mmol/L (98-107); SODIUM,NA 137 mmol/L (136-145)
[2020-02-27 14:55] LABS: PTT,PARTIAL THROMBOPLSTIN TIME 28.3 SEC (22.0-34.0)
--- NOTE | 2020-02-27 15:00 | CR ---
EXAMINATION: Chest 1V Frontal SEX: Male AGE: 39 years CLINICAL HISTORY: 39-year-old male with chest pain. Comparison exam 05 June 2018. Interpretation: External cafeteria monitor leads. Reasonable inspiratory effort obese male. Normal cardiac silhouette. No pulmonary vascular congestion, cephalization of flow, alveolar edema or dependent pleural effusion. No new lung mass, hilar lymphadenopathy or focal lobar pneumonia since 05 June 2018 comparison. No focal lobar consolidation (infiltrate/atelectasis) or "groundglass" lung densities. No pneumothorax or pneumomediastinum. Midline tracheal bronchial airway unremarkable. CONCLUSION: No acute new cardiopulmonary abnormality.
== END 2020-02-27 15:36 | disposition critical access hospital (66) ==
LOC: DL.ED 13:55
DX: R07.89 Other chest pain (principal); R00.8 Other abnormalities of heart beat; I10 Essential (primary) hypertension; K21.9 Gastro-esophageal reflux disease without esophagitis; E11.9 Type 2 diabetes mellitus without complications; E66.9 Obesity, unspecified; E78.5 Hyperlipidemia, unspecified; Z79.82 Long term (current) use of aspirin; Z79.899 Other long term (current) drug therapy; Z68.42 Body mass index [BMI] 45.0-49.9, adult
CPT/HCPCS: 36415; 71045; 80053; 80305-QW; 81001; 83605; 83735; 84100; 84484; 85025; 85610; 85730; 86140; 93005; 99285-25

== ENCOUNTER 2020-11-21 14:50 | Emergency (ER) | payer BC, OTHER ==
--- NOTE | 2020-11-21 15:46 | EDM.PDOC ---
ED HPI GENERAL MEDICAL PROBLEM - General Chief Complaint: Abdominal Pain Stated Complaint: SHARP PAIN IN CHEST Time Seen by Provider: 11/21/20 15:45 Source of Information: Reports: Patient, Old Records, RN, RN Notes Reviewed History Limitations: Reports: No Limitations - History of Present Illness INITIAL COMMENTS - FREE TEXT/NARRATIVE: Henri is a 40 y/o male who presents to the ED via personal vehicle with complaints of chest pain. The patient reports his pain began abruptly last night and has not worsened in that time. The patient reports his pain is localized to the left chest and characterizes the pain as a pinching. He states the pain lasts only seconds. He cannot reproduce the pain. He denies history of injury to the chest wall or left upper arm. He denies fever, shaking chills, cough, sore throat, palpitations, shortness of breath, nausea, or diarrhea. He has taken all of his previously prescribed medications for DM II, HTN, and HLDA. He has taken no PRN medications for this chest pain. He denies alcohol or recreational drug use; he is a former tobacco smoker with a quit date eight years ago. Chest Pain Score (Numeric/FACES): 6 - Related Data Allergies Allergy/AdvReac Type Severity Reaction Status Date / Time No Known Allergies Allergy Verified 02/27/20 14:06 Home Meds: Home Meds Aspirin 81 mg PO DAILY 02/26/15 [History] Lisinopril 20 mg PO DAILY 02/26/15 [History] Acetaminophen [Tylenol Extra Strength] 1,000 mg PO Q6H PRN 09/26/17 [History] Cetirizine [ZyrTEC] 10 mg PO DAILY 02/27/20 [History] Cholecalciferol (Vitamin D3) [Vitamin D3] 2,000 unit PO DAILY 02/27/20 [History] Cyanocobalamin (Vitamin B-12) [Vitamin B-12] 100 mcg PO DAILY 02/27/20 [History] Fluticasone Propionate 2 spray NATHAN BID 02/27/20 [History] Liraglutide [Victoza 2-George] 1.2 mg SQ DAILY 02/27/20 [History] Magnesium Oxide [Magnesium] 400 mg PO DAILY 02/27/20 [History] Omeprazole 20 mg PO DAILY 02/27/20 [History] Pravastatin Sodium [Pravachol] 20 mg PO DAILY 02/27/20 [History] metFORMIN HCl [Metformin HCl] 1,000 mg PO BID 02/27/20 [History] Past Medical History HEENT History: Reports: Impaired Vision Other HEENT History: WEARS CORRECTIVE LENSES Cardiovascular History: Reports: Hypertension Other Cardiovascular History: HYPERLIPIDEMIA Respiratory History: Reports: None Gastrointestinal History: Reports: GERD Genitourinary History: Reports: None Musculoskeletal History: Reports: None Neurological History: Reports: None Psychiatric History: Reports: None Endocrine/Metabolic History: Reports: Diabetes, Type II, Obesity/BMI 30+ Other Endocrine/Metabolic History: diet control. Hematologic History: Reports: None Immunologic History: Reports: None Oncologic (Cancer) History: Reports: None Dermatologic History: Reports: Other (See Below) Other Dermatologic History: currently being treated for abscess to lower right abd. - Infectious Disease History Infectious Disease History: Reports: Chicken Pox - Past Surgical History GI Surgical History: Reports: None Social & Family History - Family History Family Medical History: No Pertinent Family History HEENT: Reports: Macular Degeneration Other HEENT Family History: Dad Cardiac: Reports: Heart Failure Other Cardiac Family History: Dad Respiratory: Reports: COPD Psychiatric: Reports: PTSD Other Psychiatric Family History: Dad Endocrine/Metabolic: Reports: Diabetes, type II Other Endocrine/Metabolic Family History: mom Hematologic: Reports: None - Caffeine Use Caffeine Use: Reports: Soda - Living Situation & Occupation Living situation: Reports: , with Family Occupation: Employed ED ROS GENERAL - Review of Systems Review Of Systems: Comprehensive ROS is negative, except as noted in HPI. ED EXAM, GENERAL - Physical Exam Exam: See Below Exam Limited By: No Limitations General Appearance: Alert, No Apparent Distress, Obese Eye Exam: Bilateral Eye: Corneal Abrasion, Normal Inspection, PERRL (3mm) Ears: Normal External Exam, Normal Canal, Hearing Grossly Normal, Normal TMs Ear Exam: Bilateral Ear: Auricle Normal, Canal Normal, TM normal Nose: Normal Inspection, Normal Mucosa, No Blood Throat/Mouth: Normal Inspection, Normal Lips, Normal Teeth, Normal Gums, Normal Oropharynx, Normal Voice, No Airway Compromise Head: Atraumatic, Normocephalic Neck: Normal Inspection, Supple, Non-Tender, Full Range of Motion. No: Lymphadenopathy (L), Lymphadenopathy (R) Respiratory/Chest: No Respiratory Distress, Lungs Clear, Normal Breath Sounds, No Accessory Muscle Use, Chest Non-Tender Cardiovascular: Normal Peripheral Pulses, Regular Rate, Rhythm, No Edema, No Gallop, No JVD, No Murmur, No Rub Peripheral Pulses: 2+: Radial (L), Radial (R) GI/Abdominal: Normal Bowel Sounds, Soft, Non-Tender, No Distention, No Abnormal Bruit, No Mass, Pelvis Stable (Male) Exam: Deferred Rectal (Males) Exam: Deferred Back Exam: Normal Inspection, Full Range of Motion Extremities: Normal Inspection, Normal Range of Motion, Non-Tender, No Pedal Edema, Normal Capillary Refill Neurological: Alert, Oriented, CN II-XII Intact, Normal Cognition, Normal Gait, No Motor/Sensory Deficits Psychiatric: Normal Affect, Normal Mood Skin Exam: Warm, Dry, Intact, Normal Color, No Rash. No: Cyanosis, Jaundice, Mottled, Pallor, Petechiae Lymphatic: No Adenopathy #1 Interpretation EKG Date: 11/21/20 Time: 15:20 Rhythm: NSR Rate (Beats/Min): 78 [place]: Normal P-Wave: Present QRS: Normal ST-T: Normal QT: Normal IN/PQ Interval: 0.187 Comparison: Change From Previous EKG (Compared to 02-27-20) EKG Interpretation Comments: NSR; q-wave in aVR; No evidence of acute myocardial ischemia Course - Vital Signs Last Recorded V/S: Last Vital Signs Temp 98.1 F 11/21/20 15:03 Pulse 83 11/21/20 15:03 Resp 16 11/21/20 15:03 BP 112/63 11/21/20 15:03 Pulse Ox 100 11/21/20 15:03 - Orders/Labs/Meds Orders: Active Orders 24 hr Category Date Time Status EKG 12 Lead [EKG Documentation Completion] [RC] STAT Care 11/21/20 15:29 Active DRUG SCREEN URINE BIORAD [URCHEM] Urgent Lab 11/21/20 15:36 Ordered UA RFX DAVID AND CULT IF INDIC [URIN] Stat Lab 11/21/20 15:36 Ordered Labs: Laboratory Tests 11/21/20 11/21/20 11/21/20 Range/Units 15:45 15:45 15:45 WBC 8.1 (5.0-10.0) 10^3/uL RBC 5.14 (4.6-6.2) 10^6/uL Hgb 14.6 (14.0-18.0) g/dL Hct 44.0 (40.0-54.0) % MCV 85.6 (80-100) fL MCH 28.4 (27.0-34.0) pg MCHC 33.2 (33.0-35.0) g/dL Plt Count 390 (150-450) 10^3/uL Neut % (Auto) 50.8 (42.2-75.2) % Lymph % (Auto) 37.6 (20.5-50.1) % [place] % (Auto) 8.5 H (2-8) % Eos % (Auto) 2.5 (1.0-3.0) % Baso % (Auto) 0.6 (0.0-1.0) % PT 10.8 (9.0-12.0) SEC INR 1.1 (0.9-1.2) APTT 27.9 (22.0-34.0) SEC Sodium 140 (136-145) mmol/L Potassium 4.1 (3.5-5.1) mmol/L Chloride 103 (98-107) mmol/L Carbon Dioxide 27 (21-32) mmol/L Anion Gap 14.1 H (7-13) mEq/L BUN 9 (7-18) mg/dL Creatinine 0.83 (0.70-1.30) mg/dL Est Cr Clr Drug Dosing TNP Estimated GFR (MDRD) > 60 BUN/Creatinine Ratio 10.8 (No establ ref range) Glucose 117 H (70-99) mg/dL Lactic Acid (0.4-2.0) mmol/L Calcium 8.8 (8.5-10.1) mg/dL Magnesium 2.0 (1.8-2.4) mg/dL Total Bilirubin 0.5 (0.2-1.0) mg/dL AST 31 (15-37) U/L ALT 51 (16-63) U/L Alkaline Phosphatase 78 (46-116) U/L Troponin I High Sens 8 (<=76) pg/mL C-Reactive Protein 0.6 (0.0-0.9) mg/dL B-Natriuretic Peptide 5 (0-100) pg/ml Total Protein 7.5 (6.4-8.2) g/dL Albumin 3.7 (3.4-5.0) g/dL Globulin 3.8 Albumin/Globulin Ratio 1.0 Amylase 44 (25-115) U/L Lipase 147 (73-393) U/L Ethyl Alcohol < 3 (0) mg/dL // Range/Units 15:45 WBC (5.0-10.0) 10^3/uL RBC (4.6-6.2) 10^6/uL Hgb (14.0-18.0) g/dL Hct (40.0-54.0) % MCV (80-100) fL MCH (27.0-34.0) pg MCHC (33.0-35.0) g/dL Plt Count (150-450) 10^3/uL Neut % (Auto) (42.2-75.2) % Lymph % (Auto) (20.5-50.1) % [place] % (Auto) (2-8) % Eos % (Auto) (1.0-3.0) % Baso % (Auto) (0.0-1.0) % PT (9.0-12.0) SEC INR (0.9-1.2) APTT (22.0-34.0) SEC Sodium (136-145) mmol/L Potassium (3.5-5.1) mmol/L Chloride (98-107) mmol/L Carbon Dioxide (21-32) mmol/L Anion Gap (7-13) mEq/L BUN (7-18) mg/dL Creatinine (0.70-1.30) mg/dL Est Cr Clr Drug Dosing Estimated GFR (MDRD) BUN/Creatinine Ratio (No establ ref range) Glucose (70-99) mg/dL Lactic Acid 1.5 (0.4-2.0) mmol/L Calcium (8.5-10.1) mg/dL Magnesium (1.8-2.4) mg/dL Total Bilirubin (0.2-1.0) mg/dL AST (15-37) U/L ALT (16-63) U/L Alkaline Phosphatase (46-116) U/L Troponin I High Sens (<=76) pg/mL C-Reactive Protein (0.0-0.9) mg/dL B-Natriuretic Peptide (0-100) pg/ml Total Protein (6.4-8.2) g/dL Albumin (3.4-5.0) g/dL Globulin Albumin/Globulin Ratio Amylase (25-115) U/L Lipase (73-393) U/L Ethyl Alcohol (0) mg/dL - Re-Assessments/Exams Free Text/Narrative Re-Assessment/Exam: 11/21/20 Findings of examination, lab work, and imaging reviewed with patient. Patient instructed to follow up with primary care provider regarding today's visit. Red flag signs and symptoms which would warrant reevaluation reviewed. Patient verbalized understanding and agreement with the plan of care. Departure - Departure Time of Disposition: 16:49 Disposition: Home, Self-Care 01 Condition: Good Clinical Impression: Atypical chest pain, Chest wall pain Instructions: Nonspecific Chest Pain, Adult, [id number], Chest Wall Pain, [id number] Forms: ED Department Discharge Additional Instructions: 1.) Follow up with primary care provider in 3-5 days regarding today's visit. 2.) You may take ibuprofen (Advil/Motrin) 400mg every six hours, as pain persists. You may also take acetaminophen (Tylenol) 650mg every six hours, as pain persists. You may stagger these medications so you are receiving a dose every three hours. 3.) Return to the emergency department with any return of persistent chest pain or shortness of breath. Sepsis Event Note (ED) - Focused Exam Vital Signs: Vital Signs Temp Pulse Resp BP Pulse Ox 11/21/20 15:03 98.1 F 83 16 112/63 100 - My Orders Last 24 Hours: My Active Orders 11/21/20 15:29 EKG 12 Lead [EKG Documentation Completion] [RC] STAT 11/21/20 15:36 DRUG SCREEN URINE BIORAD [URCHEM] Urgent UA RFX DAVID AND CULT IF INDIC [URIN] Stat - Assessment/Plan Last 24 Hours: My Active Orders 11/21/20 15:29 EKG 12 Lead [EKG Documentation Completion] [RC] STAT 11/21/20 15:36 DRUG SCREEN URINE BIORAD [URCHEM] Urgent UA RFX DAVID AND CULT IF INDIC [URIN] Stat
[2020-11-21 16:07] LABS: PTT,PARTIAL THROMBOPLSTIN TIME 27.9 SEC (22.0-34.0)
[2020-11-21 16:11] LABS: ANION GAP 14.1 mEq/L (7-13); CHLORIDE,CL 103 mmol/L (98-107); SODIUM,NA 140 mmol/L (136-145)
--- NOTE | 2020-11-21 16:15 | CR ---
EXAMINATION: Chest 1V Frontal SEX: Male AGE: 40 years CLINICAL HISTORY: 40-year-old male with chest pain. Interpretation: *No acute new cardiopulmonary abnormality since comparison CXR exams 27 February 2020 and 05 June 2018. Normal cardiac silhouette (size and configuration). External monitoring tech leads. No pulmonary vascular congestion, cephalization of flow, alveolar edema or dependent new pleural fluid accumulation (no effusion). No alveolar infiltrate, atelectasis/collapse or peripheral "groundglass" interstitial lung densities. No pneumothorax or pneumomediastinum. No free subdiaphragmatic air.
[2020-11-21 16:25] VITALS: BP 112/63; PULSE 83
== END 2020-11-21 17:01 | disposition home or self-care (01) ==
LOC: DL.ED 14:50
DX: R07.89 Other chest pain (principal); E11.9 Type 2 diabetes mellitus without complications; I10 Essential (primary) hypertension; E66.9 Obesity, unspecified; Z68.30 Body mass index [BMI] 30.0-30.9, adult; Z79.82 Long term (current) use of aspirin; Z79.84 Long term (current) use of oral hypoglycemic drugs; Z79.899 Other long term (current) drug therapy
CPT/HCPCS: 36415; 71045; 80053; 80307; 82150; 83605; 83690; 83735; 83880; 84484; 85025; 85610; 85730; 86140; 93005; 93010; 99284; 99285-25